=== PATIENT | male | born 1965 | race American Indian/Alaskan Native ===

== ENCOUNTER 2020-05-31 10:12 | Inpatient (IN) | payer OTHER ==
[~2020-05-31] VITALS: Ht 175.3 cm; Wt 151.9 kg
--- OUTSIDE RECORDS SUMMARY | ~2020-05-31 | XMS | Encounter Summary ---
Demographics + + + | Address | [address] | | | [place] [address] | + + + | Home Phone | | + + + | Preferred Language | Unknown | + + + | Marital Status | | + + + | Presybeterian Affiliation | CHR | + + + | Race | White | + + + | Ethnic Group | Not or | + + + Author + + + | Author | [facility] | + + + | Organization | [facility] | + + + | Address | Unknown | + + + | Phone | Unavailable | + + + Support + + +---------+ + | Name | Relationship | Address | Phone | + + +---------+ + | Jacquie Garcia | ECON | Unknown | | + + +---------+ + Care Team Providers + +------+ + | Care Herbarium Curator Name | Role | Phone | + +------+ + | Karime Benavides MD | PCP | | + +------+ + Encounter Details +--------+ + + + + | Date | Type | Department | Care Team | Description | +--------+ + + + + | 02/25/ | Outside | [facility] | Karime Benavides, | | | 2018 | Referral | [facility] [address] | MD Rossi | | | | Order | [facility] | [facility] | | | | | [facility], | [address] | | | | | [address] | [place], [place] | | | | | [facility] [place] | [address] | | | | | [address] | | | | | | [phone] | | | +--------+ + + + + Social History + +-------+ +--------+------+ | Tobacco Use | Types | Packs/Day | Years | Date | | | | | Used | | + +-------+ +--------+------+ | Never Assessed | | | | | + +-------+ +--------+------+ + + + | Sex Assigned at | Date Recorded | | | | + + + | Not on file | | + + + + + + + | Job Start Date | Occupation | Industry | + + + + | Not on file | Not on file | Not on file | + + + + + + + + | Travel History | Travel Start | Travel End | + + + + + + | No recent travel history available. | + + documented as of this encounter Plan of Treatment Not on filedocumented as of this encounter Results EUS UPPER (03/26/2018 1:41 PM PDT) + + | Specimen | + + | | + + + +--- + | Narrative | Pe rformed At | + +--- + | MRN: | [facility] | | [id number] Date: 03/26/2018Patient Name: Srinivasa Fairchild #: | EN DOSCOPY | | [id number] of : 1965CSN: [id number] Type: | | | AmbulatoryRoom: GI 1Procedure: Upper EUSIndications: | | | Lymphadenopathy on CT scan, Lymphadenopathy on MRIProviders: | | | KAREN ESPARZA MD (Doctor), JONNY WINN RN | | | (Nurse), CHONG FLOOD, Employment Law Specialist | | | (Employment Law Specialist)Referring MD: KARIME BENAVIDESRequesting | | | Provider: Medicines: Monitored Anesthesia | | | CareComplications: No immediate complications.Procedure: | | | Pre-Anesthesia Assessment: - | | | Pre-procedure physical examination revealed no | | | contraindications to sedation. | | | - Airway Examination: Mallampati Class II (the uvula but | | | not tonsillar pillars visualized). | | | - ASA Grade Assessment: III - A patient with severe | | | systemic disease. | | | - After reviewing the risks and benefits, the patient | | | was deemed in satisfactory condition to undergo | | | the procedure. | | | - The anesthesia plan was to use monitored anesthesia | | | care (MAC). - | | | Immediately prior to administration of medications, | | | the patient was re-assessed for adequacy to receive | | | sedatives. | | | Prior to the procedure, a History and Physical with | | | airway assessment was performed (see patient record), | | | and patient medications and allergies were | | | reviewed. The risks and benefits of | | | the procedure and the sedation options | | | and risks were discussed. All questions were | | | answered and informed consent was obtained. After | | | reviewing the risks and benefits, the patient was | | | deemed in satisfactory condition to | | | undergo the procedure. Immediately | | | prior to administration of medications, the | | | patient was re-assessed for adequacy to receive | | | sedatives. The heart rate, respiratory rate, oxygen | | | saturations, blood pressure, adequacy of | | | pulmonary ventilation, and response to | | | care were monitored throughout the | | | procedure. The physical status of the | | | patient was re-assessed after the procedure. | | | The Olympus [id number] Endoscope #[id number] was introduced | | | through the mouth, and advanced to the second | | | part of duodenum. The Olympus [id number] | | | AL5 Linear Echoendoscope #[id number] was | | | introduced through the mouth, and advanced | | | to the second part of duodenum. The upper EUS was | | | accomplished without difficulty. The patient tolerated | | | the procedure fairly well.Estimated | | | Blood Loss: Estimated blood loss was minimal.Findings: | | | Endoscopic Finding : LA Grade B (one or more mucosal breaks | | | greater than 5 mm, not extending between the tops of two | | | mucosal folds) esophagitis was found in the distal esophagus. | | | The entire examined stomach was endoscopically normal. The | | | examined duodenum was endoscopically normal. Endosonographic | | | Finding : There was no sign of significant endosonographic | | | abnormality in the ampulla. There was no sign of | | | significant endosonographic abnormality in the common bile | | | duct. The maximum diameter of the duct was 5 mm in the head of | | | the pancreas. There was no sign of significant endosonographic | | | abnormality in the entire pancreas. The pancreatic duct | | | measured up to 2.4 mm in diameter in the body of the pancreas. | | | Two enlarged lymph nodes were visualized in the gastrohepatic | | | ligament (level 18). The largest measured 16 mm by 9 mm in | | | maximal cross-sectional diameter. The nodes were oval, | | | hypoechoic and had well defined margins. One enlarged | | | lymph node was visualized in the avelino hepatis region. It | | | measured 24 mm by 15 mm in maximal cross-sectional diameter. The node | | | was oval, isoechoic and heterogenous and had well defined | | | margins. Fine needle aspiration for cytology was performed. | | | Color Doppler imaging was utilized prior to needle puncture to | | | confirm a lack of significant vascular structures within the | | | needle path. Five passes were made with the 25 gauge needle | | | using a transduodenal approach. A stylet was used. A customer care voice consultant | | | was present and performed a preliminary cytologic examination. | | | The cellularity of the specimen was adequate. Final cytology | | | results are pending. There was diffuse abnormal echotexture in | | | the undersurface of the liver. This was characterized by a | | | hyperechoic appearance.Impression: - LA Grade B reflux | | | esophagitis. - Two enlarged lymph nodes | | | were visualized in the gastrohepatic | | | ligament (level 18). - One enlarged | | | lymph node was visualized in the avelino | | | hepatis region. Fine needle aspiration performed. | | | - Changes of fatty liver.Recommendation: - Discharge | | | patient to home (ambulatory). - Await | | | cytology results. - Return to referring | | | physician as previously scheduled. - The | | | findings and recommendations were discussed with | | | the patient and their family.Attending Participation: | | | I personally performed the entire procedure.BERENICE Chacko | | | MD EZEKIEL03/26/2018 4:34:19 PMThis report has been signed | | | electronically.Number of Addenda: 0Note Initiated On: 03/26/2018 1:41 | | | [facility] Letter to: KARIME BENAVIDES | | | - The findings and recommendations were discussed with | | | the patient and their family. | | |Attending Participation: | | | I personally performed the entire procedure. | | |Karen Esparza MD | | |KAREN ESPARZA MD | | |03/26/2018 4:34:19 PM | | |This report has been signed electronically. | | |Number of Addenda: 0 | | |Note Initiated On: 03/26/2018 1:41 PM | | | Letter to: | | | KARIME BENAVIDES | | + +--- + + +---------+ + + | Performing | Address | City/State/Zipcode | Phone Number | | Organization | | | | + +---------+ + + | [facility] | | | | + +---------+ + + documented in this encounter Visit Diagnoses + + | Diagnosis | + + | Lymphadenitis - Primary Lymphadenitis, unspecified, except mesenteric | + + documented in this encounter"
--- OUTSIDE RECORDS SUMMARY | ~2020-05-31 | XMS | Encounter Summary ---
Demographics + + + | Address | [address] | | | [place] [address] | + + + | Home Phone | | + + + | Preferred Language | Unknown | + + + | Marital Status | | + + + | Presybeterian Affiliation | CHR | + + + | Race | White | + + + | Ethnic Group | Not or | + + + Author + + + | Author | [facility] | + + + | Organization | [facility] | + + + | Address | Unknown | + + + | Phone | Unavailable | + + + Support + + +---------+ + | Name | Relationship | Address | Phone | + + +---------+ + | Jacquie Garcia | ECON | Unknown | | + + +---------+ + Care Team Providers + +------+ + | Care Analysis Manager Name | Role | Phone | + +------+ + | Campos Benavides MD | PCP | | + +------+ + Reason for Visit + + + | Reason | Comments | + + + | Medical Records | | | Review | | + + + Encounter Details +--------+ + + + + | Date | Type | Department | Care Team | Description | +--------+ + + + + | 02/21/ | Documentati | Endoscopic | Lab, Gi Procedure | Medical Records | | 2018 | on | Procedural Unit at | | Review | | | | [address] | | | | | | [address] | | | | | | [place], | | | | | | [address] floor [place], | | | | | | [place] [address] | | | | | | [phone] | | | +--------+ + + + [...] Not on filedocumented as of this encounter Visit Diagnoses Not on filedocumented in this encounter"
--- OUTSIDE RECORDS SUMMARY | ~2020-05-31 | XMS | Encounter Summary ---
Demographics + + + | Address | [address] | | | [place] [address] | + + + | Home Phone | | + + + | Preferred Language | Unknown | + + + | Marital Status | | + + + | Muslim Affiliation | CHR | + + + | Race | White | + + + | Ethnic Group | Not or | + + + Author + + + | Author | [facility] | + + + | Organization | [facility] | + + + | Address | Unknown | + + + | Phone | Unavailable | + + + Support + + +---------+ + | Name | Relationship | Address | Phone | + + +---------+ + | Jacquie Garcia | ECON | Unknown | | + + +---------+ + Care Team Providers + +------+ + | Care Wine Sales Representative Name | Role | Phone | + +------+ + | Campos Benavides MD | PCP | | + +------+ + Reason for Visit + + + | Reason | Comments | + + + | Pre-op evaluation | | + + + Encounter Details +--------+ + + + + | Date | Type | Department | Care Team | Description | +--------+ + + + + | 03/25/ | Telephone-S | Preoperative | | Pre-op evaluation | | 2018 | [facility] | Medicine Clinic at | | | | | | [facility] [address] | | | | | | [address] | | | | | | [address] | | | | | | Mailcode: [id number] | | | | | | [address] | | | | | | [address] [place], [place] | | | | | | [address] | | | | | | [phone] | | | +--------+ + + + + Anesthesia Record + + + + + | Procedure Name | Responsible | Anesthesia Start | Anesthesia Stop Time | | | Anesthesiologist | Time | | + + + + + | EUS UPPER | Geo Acosta MD | 03/26/18 1353 | 03/26/18 1520 | + + + + + +----+---+ + + | Da | T | Event | Comment | | te | i | | | | | m | | | | | e | | | +----+---+ + + | 05 | 1 | Eq Check | Anesthesia machine checked Equipment verified | | /2 | 3 | | | | 2/ | 3 | | | | 20 | 5 | | | | 18 | | | | +----+---+ + + | | 1 | Pt. Check | Prior to anesthesia start, pt. Identified, examined, chart | | | 3 | | reviewed, PARQ held, anesthetic plan made or approved by | | | 4 | | attending anesthesiologist. NPO status confirmed as appropriate | | | 0 | | for procedure Preoperative evaluation: unchanged | +----+---+ + + | | 1 | An Start | | | | 3 | | | | | 5 | | | | | 3 | | | +----+---+ + + | | 1 | An Start | | | | 3 | Data | | | | 5 | | | | | 9 | | | +----+---+ + + | | 1 | Vitals | Monitors applied Vital signs checked Patient ready for anesthesia | | | 4 | Checked | | | | 0 | | | | | 0 | | | +----+---+ + + | | 1 | O2 by NC | | | | 4 | | | | | 0 | | | | | 3 | | | +----+---+ + + | | 1 | Ready | | | | 4 | | | | | 0 | | | | | 4 | | | +----+---+ + + | | 1 | Timeout | | | | 4 | | | | | 1 | | | | | 2 | | | +----+---+ + + | | 1 | Abx held | Contraindicated, or not indicated for this procedure, or already | | | 4 | Medical or | receiving antibiotics | | | 1 | Surgical | | | | 3 | Reason | | +----+---+ + + | | 1 | Incision | | | | 4 | | | | | 1 | | | | | 6 | | | +----+---+ + + | | 1 | Note | B/P cuff switched to left leg | | | 4 | | | | | 5 | | | | | 2 | | | +----+---+ + + | | 1 | Surgery end | | | | 5 | | | | | 0 | | | | | 0 | | | +----+---+ + + | | 1 | an stop | | | | 5 | data | | | | 0 | | | | | 6 | | | +----+---+ + + | | 1 | PACU Rpt | | | | 5 | Given | | | | 2 | | | | | 0 | | | +----+---+ + + | | 1 | Anesthesia | | | | 5 | End | | | | 2 | | | | | 0 | | | +----+---+ + + +------+ | Meds | +------+ + + + No medications | on file. | + + + + + | No agents on file. | + + + + | No blood administrations on file. | + + +--------+ + + + | Type | Details | Placement | Removal | +--------+ + + + | Periph | 03/26/18; 1215; Shagufta Jones RN; | 03/26/18 1215 by | 03/26/18 1604 by | | eral | Right; Antecubital; 20 g; None; | Shagufta Mcclelland RN | Lidia Sunitsch RN | | IV | No; Positive; 03/26/18; 1604; | | | | | Discharge | | | +--------+ + + + documented in this encounter Social History + +-------+ +--------+------+ | Tobacco [...]
--- OUTSIDE RECORDS SUMMARY | ~2020-05-31 | XMS | Encounter Summary ---
Demographics + + + | Address | [address] | | | [place] [address] | + + + | Home Phone | | + + + | Preferred Language | Unknown | + + + | Marital Status | | + + + | Episcopal Affiliation | CHR | + + + | Race | White | + + + | Ethnic Group | Not or | + + + Author + + + | Author | [facility] | + + + | Organization | [facility] | + + + | Address | Unknown | + + + | Phone | Unavailable | + + + Support + + +---------+ + | Name | Relationship | Address | Phone | + + +---------+ + | Jacquie Garcia | ECON | Unknown | | + + +---------+ + Care Team Providers + +------+ + | Care Accounts Receivable Administrator Name | Role | Phone | + [...] | | | | | [address] floor [place], | | | | | | [place] [address] | | | | | | [phone] | | | +--------+ + + + [...]
--- OUTSIDE RECORDS SUMMARY | ~2020-05-31 | XMS | Encounter Summary ---
Demographics + + + | Address | [address] | | | [place] [address] | + + + | Home Phone | | + + + | Preferred Language | Unknown | + + + | Marital Status | | + + + | Uatsdin Affiliation | CHR | + + + | Race | White | + + + | Ethnic Group | Not or | + + + Author + + + | Author | [facility] | + + + | Organization | [facility] | + + + | Address | Unknown | + + + | Phone | Unavailable | + + + Support + + +---------+ + | Name | Relationship | Address | Phone | + + +---------+ + | Jacquie Garcia | ECON | Unknown | | + + +---------+ + Care Team Providers + +------+ + | Care Senior Research Associate Name | Role | Phone | + [...] [address] | | | | | | [place], [place] | | | | | | [address] | | | +--------+ + + + [...]
--- OUTSIDE RECORDS SUMMARY | ~2020-05-31 | XMS | Encounter Summary ---
Demographics + + + | Address | [address] | | | [place] [address] | + + + | Home Phone [...] Team Providers + +------+ + | Care Poultry Cutter Name | Role | Phone | + +------+ + | Campos Benavides MD | PCP | | + +------+ + Reason for Visit + + + | Reason | Comments | + + + | Lab findings, | | | teaching, guidance, | | | and counseling | | + + + Encounter Details +--------+ + + + + | Date | Type | Department | Care Team | Description | +--------+ + + + + | 05/31/ | Telephone | Digestive Health | CristianIain toro, | Lab findings, | | 2018 | | Center at [facility] [address] | [address] [facility] | teaching, guidance, | | | | [facility] | [address] | and counseling | | | | for Health and | [place], [place] | | | | | [facility] [address] | [address] | | | | | [place], [place] | [phone] | | | | | [address] | | | | | | [phone] | | | +--------+ + + + [...]
--- OUTSIDE RECORDS SUMMARY | ~2020-05-31 | XMS | Encounter Summary ---
Demographics + + + | Address | [address] | | | [place] [address] | + + + | Home Phone | | + + + | Preferred Language | Unknown | + + + | Marital Status | | + + + | Judaism Affiliation | CHR | + + + | Race | White | + + + | Ethnic Group | Not or | + + + Author + + + | Author | [facility] | + + + | Organization | [facility] | + + + | Address | Unknown | + + + | Phone | Unavailable | + + + Support + + +---------+ + | Name | Relationship | Address | Phone | + + +---------+ + | Jacquie Garcia | ECON | Unknown | | + + +---------+ + Care Team Providers + +------+ + | Care Cuff Slitter Name | Role | Phone | + +------+ + | Campos Benavides MD | PCP | | + +------+ + Reason for Visit + + + | Reason | Comments | + + + | Telephone follow-up | 03/26/18 | + + + | Test Results | | + + + Encounter Details +--------+ + + + + | Date | Type | Department | Care Team | Description | +--------+ + + + + | 03/27/ | Telephone | Endoscopic | Iain Esparza, | Telephone follow-up | | 2018 | | Procedural Unit at | [address] | (03/26/18); Test | | | | [facility] [address] | [facility] | Results | | | | [address] | [place], [place] | | | | | [facility] [address], | [address] | | | | | [address] floor [place], | [phone] | | | | | [place] [address] | | | | | | [phone] | | | +--------+ + + + [...]
--- OUTSIDE RECORDS SUMMARY | ~2020-05-31 | XMS | Encounter Summary ---
Demographics + + + | Address | [address] | | | [place] [address] | + + + | Home Phone | | + + + | Preferred Language | Unknown | + + + | Marital Status | | + + + | Scientology Affiliation | CHR | + + + | Race | White | + + + | Ethnic Group | Not or | + + + Author + + + | Author | [facility] | + + + | Organization | [facility] | + + + | Address | Unknown | + + + | Phone | Unavailable | + + + Support + + +---------+ + | Name | Relationship | Address | Phone | + + +---------+ + | Jacquie Garcia | ECON | Unknown | | + + +---------+ + Care Team Providers + +------+ + | Care Gum Scoring Machine Operator Name | Role | Phone | + +------+ + | Campos Benavides MD | PCP | | + +------+ + Encounter Details +--------+ + + + + | Date | Type | Department | Care Team | Description | +--------+ + + + + | 01/23/ | Document-Sc | Health Information | Other, Faculty | | | 2018 | anned | Services [address] | [phone] | | | | | [address] | | | | | | Mailcode: [id number] | | | | | | [facility] | | | | | | [place], [place] | | | | | | [address] | | | | | | [phone] | | | +--------+ + + + [...] Not on filedocumented as of this encounter Procedures + +--------+ + + + | Procedure Name | Priori | Date/Time | Associated Diagnosis | Comments | | | ty | | | | + +--------+ + + + | RADIOLOGY | | 01/23/2018 | | Results for this | | | | 12:00 AM | | procedure are in the | | | | PDT | | results section. | + +--------+ + + + documented in this encounter Results RADIOLOGY (01/23/2018 12:00 AM PDT) + + + | Narrative | Performed At | + + + | | | + + + documented in this encounter Visit Diagnoses Not on filedocumented in this encounter"
--- OUTSIDE RECORDS SUMMARY | ~2020-05-31 | XMS | Encounter Summary ---
Demographics + + + | Address | [address] | | | [place] [address] | + + + | Home Phone | | + + + | Preferred Language | Unknown | + + + | Marital Status | | + + + | Baptist Affiliation | CHR | + + + | Race | White | + + + | Ethnic Group | Not or | + + + Author + + + | Author | [facility] | + + + | Organization | [facility] | + + + | Address | Unknown | + + + | Phone | Unavailable | + + + Support + + +---------+ + | Name | Relationship | Address | Phone | + + +---------+ + | Jacquie Garcia | ECON | Unknown | | + + +---------+ + Care Team Providers + +------+ + | Care Compliance Vice President Name | Role | Phone | + +------+ + | Campos Benavides MD | PCP | | + +------+ + Encounter Details +--------+ + + + + | Date | Type | Department | Care Team | Description | +--------+ + + + + | 01/23/ | Document-Sc | Health Information | Other, Faculty | | | 2018 | anned | Services [address] | [phone] | | | | | [address] | | | | | | Mailcode: [id number] | | | | | | [facility] | | | | | | [place], [place] | | | | | | [address] | | | | | | [phone] | | | +--------+ + + + [...]
--- OUTSIDE RECORDS SUMMARY | ~2020-05-31 | XMS | Encounter Summary ---
Demographics + + + | Address | [address] | | | [place] [address] | + + + | Home Phone | | + + + | Preferred Language | Unknown | + + + | Marital Status | | + + + | Tenriism Affiliation | CHR | + + + | Race | White | + + + | Ethnic Group | Not or | + + + Author + + + | Author | [facility] | + + + | Organization | [facility] | + + + | Address | Unknown | + + + | Phone | Unavailable | + + + Support + + +---------+ + | Name | Relationship | Address | Phone | + + +---------+ + | Jacquie Garcia | ECON | Unknown | | + + +---------+ + Care Team Providers + +------+ + | Care Global Product Manager Name | Role | Phone | [...] [address] | | | | | [facility] | [facility] | | | | | [address] | [place], [place] | | | | | ([facility]) | [address] | | | | | [place], [place] | [phone] | | | | | [address] | | | | | | [phone] | | | +--------+ + + + [...] Discharge Instructions Instructions Jonny Winn RN - [facility]2018[facility] Care Instructions after EGD (Upper Endosco py) [...] hours or on weekends and holiday Hospital Pump Attendant toll free [phone]. [phone] and have the GI doctor national secretary paged. The provider who performed your procedure [...] +---------+--------+ + documented as of this encounter Plan [...] endoscopic | | DEPARTMENT | signed by Sung | | Diagnosis | ultrasound-guided fine | | OF | E MD Lizandro on | | | needle aspiration:- | [...] or | | | | | | Fnau-Olgzbbjoc-cgtq | | | | | | cells are identified. | | | | | | Because fine needle | | | | | | aspiration specimens are | | | | | | not always | | | | | | technical account representative, if the | | | | [...] | | | | | | FellowSung-Mary MD Lizandro | | | | | | - [...] | + + + + + | [facility] | [address] | [place] [address] | | | PATHOLOGY | [address] | | | + + + + + EUS UPPER (03/26/2018 1:41 PM PDT) + + | Specimen | + + | | + + + +--- + | Narrative | Pe rformed At | + +--- + | MRN: Arcadio OVALLES | | [id number] Date: 03/26/2018Patient Name: Srinivasa SamayoaRoger #: | EN DOSCOPY | | [id number] of : 1965CSN: [id number] Type: | | | AmbulatoryRoom: GI 1Procedure: Upper EUSIndications: | | | Lymphadenopathy on CT scan, Lymphadenopathy on MRIProviders: | | | IAIN ESPARZA MD (Doctor), JONNY WINN, RN | | | (Nurse), CHONG FLOOD, Biomedical Repair Technician | | | (Biomedical Repair Technician)Referring MD: CAMPOS BENAVIDESRequesting | | | Provider: [...] | | | The Olympus GIF-[id number] Endoscope #[id number] was introduced | | | through the mouth, and advanced to the second | | | part of duodenum. The Olympus [id number] | | | AL5 Linear Echoendoscope #[id number] was | | | introduced through the [...] transduodenal approach. A stylet was used. A light rail operator | | | was present and performed [...] Initiated On: 03/26/2018 1:41 | | | [facility] Letter to: CAMPOS BENAVIDES | | | [...] + + + | [facility] | [address] | [place], [place] | | | [place] | [facility] | [address] | | | TESTS | | | [...]
--- OUTSIDE RECORDS SUMMARY | ~2020-05-31 | XMS | Encounter Summary ---
Demographics + + + | Address | [address] | | | [place] [address] | + + + | Home Phone | | + + + | Preferred Language | Unknown | + + + | Marital Status | | + + + | Moravian Affiliation | CHR | + + + | Race | White | + + + | Ethnic Group | Not or | + + + Author + + + | Author | [facility] | + + + | Organization | [facility] | + + + | Address | Unknown | + + + | Phone | Unavailable | + + + Support + + +---------+ + | Name | Relationship | Address | Phone | + + +---------+ + | Jacquie Garcia | ECON | Unknown | | + + +---------+ + Care Team Providers + +------+ + | Care Scientific Writer Name | Role | Phone | + [...] [address] | | | | | | [place], [place] | | | | | | [address] | | | +--------+ + + + [...]
--- OUTSIDE RECORDS SUMMARY | ~2020-05-31 | XMS | Clinical Summary ---
Demographics + + + | Address | [address] | | | [place] [address] | + + + | Home Phone | | + + + | Preferred Language | Unknown | + + + | Marital Status | | + + + | Alevism Affiliation | CHR | + + + | Race | White | + + + | Ethnic Group | Not or | + + + Author + + + | Author | [facility] | + + + | Organization | [facility] | + + + | Address | Unknown | + + + | Phone | Unavailable | + + + Support + + +---------+ + | Name | Relationship | Address | Phone | + + +---------+ + | Jacquie Garcia | ECON | Unknown | | + + +---------+ + Care Team Providers + +------+ + | Care Cane Feeder Name | Role | Phone | + +------+ + | Campos Benavides MD | PCP | | + +------+ + Source Comments JOSR is fully live on both [facility] and [facility] Allergies No Known Allergies Medications + + [...] + +---------+------+------+-------+ Active Problems Not on file Social History [...] recent travel history available. | + + Last Filed Vital Signs + [...] Health Maintenance | Due Date | Last Done | Comments | + + + + + | Influenza (Flu) | | 11/16/2017, 08/14/2016, | | | vaccination (#1) | 9 | 08/10/2015, Additional history | | | | | exists | | + + + + + | Pneumococcal | Aged Out | | No longer eligible | | vaccination | | | based on patient's | | | | | age to complete this | | | | | topic | + + + + + [...] | | | + +--------+ +--------+-------+---------+--------+ | [facility] | | xxxxxxxxx | | | | Agency | | [...] Person | Self | [birth year] | | [address] | | | al/Aniceto | | 1965 | [phone] | [place] | | | ken | | | 9 ([place]) | [address] | + +--------+ +--------+ + +
--- OUTSIDE RECORDS SUMMARY | ~2020-05-31 | XMS | Encounter Summary ---
Demographics + + + | Address | [address] | | | [place] [address] | + + + | Home Phone | | + + + | Preferred Language | Unknown | + + + | Marital Status | | + + + | Episcopalian Affiliation | CHR | + + + | Race | White | + + + | Ethnic Group | Not or | + + + Author + + + | Author | [facility] | + + + | Organization | [facility] | + + + | Address | Unknown | + + + | Phone | Unavailable | + + + Support + + +---------+ + | Name | Relationship | Address | Phone | + + +---------+ + | Jacquie Garcia | ECON | Unknown | | + + +---------+ + Care Team Providers + +------+ + | Care Flake Drier Name | Role | Phone | + [...] [address] | | | | | [facility] | [facility] | | | | | [address] | [place], [place] | | | | | ([facility]) | [address] | | | | | [place], [place] | [phone] | | | | | [address] | | | | | | [phone] | | | +--------+ + + + [...] Discharge Instructions Instructions Jonny Winn RN - 03/26/2018[facility] Care Instructions after EGD (Upper Endosco py) [...] hours or on weekends and holiday Hospital Fuels Engineer toll free [phone]. [phone] and have the GI doctor flotation operator paged. The provider who performed your procedure [...] or | | | | | | Rfkm-Zmphvfaoe-msrj | | | | | | cells are identified. | | | | | | Because fine needle | | | | | | aspiration specimens are | | | | | | not always | | | | | | client account representative, if the | | | [...] | + + + + + | [facility] | [address] | [place] [address] | | | PATHOLOGY | [address] | | | + + + + + EUS UPPER (03/26/2018 1:41 PM PDT) + + | Specimen | + + | | + + + +--- + | Narrative | Pe rformed At | + +--- + | MRN: Arcadio OVALLES | | [id number] Date: 03/26/2018Patient Name: Srinivasa SamayoaRoger #: | EN DOSCOPY | | [id number] of : 1965CSN: [id number] Type: | | | AmbulatoryRoom: GI 1Procedure: Upper EUSIndications: | | | Lymphadenopathy on CT scan, Lymphadenopathy on MRIProviders: | | | IAIN ESPARZA MD (Doctor), JONNY WINN, RN | | | (Nurse), CHONG FLOOD, Glue Wheel Operator | | | (Glue Wheel Operator)Referring MD: CAMPOS BENAVIDESRequesting | | | Provider: [...] | | | The Olympus GIF-H190 Endoscope #[id number] was introduced | | | through the mouth, and advanced to the second | | | part of duodenum. The Olympus [id number] | | | AL5 Linear Echoendoscope #[id number] was | | | introduced through the [...] transduodenal approach. A stylet was used. A director of early childhood | | | was present and performed [...] Initiated On: 03/26/2018 1:41 | | | [facility] Letter to: CAMPOS BENAVIDES | | | [...] GO[facility] | [address] | [place], [place] | | | [place] | [facility] | [address] | | | TESTS | | | [...]
--- OUTSIDE RECORDS SUMMARY | ~2020-05-31 | XMS | Clinical Summary ---
Demographics + + + | Address | [address] [place] [address] [address] | | | [place] [address] | + + + | Home Phone | | + + + | Preferred Language | Unknown | + + + | Marital Status | | + + + | Lutheran Affiliation | Unknown | + + + | Race | Unknown | + + + | Ethnic Group | Unknown | + + + Author + + + | Author | [facility] | | | and Janesana | + + + | Organization | [facility] | | | and Janesana [...] Team Providers + +------+ + | Care County Administrator Name | Role | Phone | [...] | | | + +--------+ +--------+-------+---------+--------+ | [facility] | IHS | [phone] | | | | Indemn | | [...] Person | Self | [birth year] | | [address] | | | al/Fam | | 1965 | [phone] | [place] | | | ken | | | 9 ([place]) | [address] | + +--------+ +--------+ + +"
--- OUTSIDE RECORDS SUMMARY | ~2020-05-31 | XMS | Encounter Summary ---
Demographics + + + | Address | [address] | | | [place] [address] | + + + | Home Phone | | + + + | Preferred Language | Unknown | + + + | Marital Status | | + + + | Jew Affiliation | Unknown | + + + | Race | Unknown | + + + | Ethnic Group | Unknown | + + + Author + + + | Author | [facility] | | | and Janesana | + + + | Organization | [facility] | | | and [...] Team Providers + +------+ + | Care Account Support Manager Name | Role | Phone | + +------+ + PCP | Unavailable | + +------+ + Encounter Details +--------+ + + + + | Date | Type | Department | Care Team | Description | +--------+ + + + + | 06/30/ | Hospital | [facility] | [place], | | | 2009 | Encounter | MED CTR EM[facility]Y | [address] | | | | | CENTER [address] | [place] | | | | | [place] | [id number] | | | | | [address] | | | | | | [phone] | | | +--------+ + + + [...]
--- OUTSIDE RECORDS SUMMARY | ~2020-05-31 | XMS | Encounter Summary ---
Demographics + + + | Address | [address] | | | [place] [address] | + + + | Home Phone [...] Team Providers + +------+ + | Care Marker Machine Name | Role | Phone | + +------+ + | Karime Benavides MD | PCP | | + +------+ + Encounter Details +--------+ + + + + | Date | Type | Department | Care Team | Description | +--------+ + + + + | 02/25/ | Outside | [facility] | Karime Benavides, | | | 2018 | Referral | [facility] | MD Rossi | | | | Order | [place] [facility] | [facility] | | | | | [facility] and Healing, | [address] | | | | | [address] | [place], [place] | | | | | [facility] [place] | [address] | | | | | [address] | | | | | | [phone] | | | +--------+ + + + [...] + | MRN: | [facility] | | [id number] Date: 03/26/2018Patient Name: Srinivasa Fairchild #: | EN DOSCOPY | | [id number] of : 1965CSN: [id number] Type: | | | AmbulatoryRoom: GI 1Procedure: Upper EUSIndications: | | | Lymphadenopathy on CT scan, Lymphadenopathy on MRIProviders: | | | KAREN ESPARZA MD (Doctor), JONNY WINN RN | | | (Nurse), CHONG FLOOD, Junior Qa Analyst | | | (Junior Qa Analyst)Referring MD: KARIME BENAVIDESRequesting | | | Provider: [...] | | | The Olympus GIF-H190 Endoscope #[id number] was introduced | | | through the mouth, and advanced to the second | | | part of duodenum. The Olympus GF-[id number] | | | AL5 Linear Echoendoscope #[id number] was | | | introduced through the [...] transduodenal approach. A stylet was used. A manufacturing engineer chief | | | was present and performed [...] Initiated On: 03/26/2018 1:41 | | | [facility] Letter to: KARIME BENAVIDES | | [...]
--- OUTSIDE RECORDS SUMMARY | ~2020-05-31 | XMS | Clinical Summary ---
Demographics + + + | Address | [address] | | | [place] [address] | + + + | Home Phone | | + + + | Preferred Language | Unknown | + + + | Marital Status | | + + + | Worship Affiliation | CHR | + + + | Race | White | + + + | Ethnic Group | Not or | + + + Author + + + | Author | [facility] | + + + | Organization | [facility] | + + + | Address | Unknown | + + + | Phone | Unavailable | + + + Support + + +---------+ + | Name | Relationship | Address | Phone | + + +---------+ + | Jacquie Garcia | ECON | Unknown | | + + +---------+ + Care Team Providers + +------+ + | Care Setter Juice Packaging Machines Name | Role | Phone | + +------+ + | Campos Benavides MD | PCP | | + +------+ + Source Comments JOSR is fully live on both [facility] Ambulatory and [facility] InPatient.[facility] Allergies No Known Allergies Medications + [...] | | | + +--------+ +--------+-------+---------+--------+ | [facility] | | [phone] | | | [...] Person | Self | [birth year] | | [address] | | | al/Aniceto | | 1965 | [phone] | [place] | | | ken | | | 9 ([place]) | [address] | + +--------+ +--------+ + +
--- OUTSIDE RECORDS SUMMARY | ~2020-05-31 | XMS | Clinical Summary ---
Demographics + + + | Address | [address] [place] [address] [address] | | | [place] [address] | + + + | Home Phone | | + + + | Preferred Language | Unknown | + + + | Marital Status | | + + + | Gnosticist Affiliation | Unknown | + + + | Race | Unknown | + + + | Ethnic Group | Unknown | + + + Author + + + | Author | [facility] | | | and Janesana | + + + | Organization | [facility] | | | and Janesana [...] Team Providers + +------+ + | Care Electric Blanket Wirer Name | Role | Phone | + [...] | | | + +--------+ +--------+-------+---------+--------+ | [facility] | IHS | [phone] | | | | Indemn | | [...] Person | Self | [birth year] | | [address] | | | al/Fam | | 1965 | [phone] | [place] | | | ken | | | 9 ([place]) | [address] | + +--------+ +--------+ + +"
--- OUTSIDE RECORDS SUMMARY | ~2020-05-31 | XMS | Encounter Summary ---
Demographics + + + | Address | [address] | | | [place] [address] | + + + | Home Phone | | + + + | Preferred Language | Unknown | + + + | Marital Status | | + + + | Amish Affiliation | CHR | + + + | Race | White | + + + | Ethnic Group | Not or | + + + Author + + + | Author | [facility] | + + + | Organization | [facility] | + + + | Address | Unknown | + + + | Phone | Unavailable | + + + Support + + +---------+ + | Name | Relationship | Address | Phone | + + +---------+ + | Jacquie Garcia | ECON | Unknown | | + + +---------+ + Care Team Providers + +------+ + | Care Suction Dredge Dumping Supervisor Name | Role | Phone | + +------+ + | Campos Benavides MD | PCP | | + +------+ + Encounter Details +--------+ + + + + | Date | Type | Department | Care Team | Description | +--------+ + + + + | 01/23/ | Document-Sc | Health Information | Other, Faculty | | | 2018 | anned | Services [address] | [phone] | | | | | [address] | | | | | | Mailcode: OP17A | | | | | | [facility] | | | | | | [place], [place] | | | | | | [address] | | | | | | [phone] | | | +--------+ + + + [...]
--- OUTSIDE RECORDS SUMMARY | ~2020-05-31 | XMS | Clinical Summary ---
Demographics + + + | Address | [address] | | | [place] [address] | + + + | Home Phone | | + + + | Preferred Language | Unknown | + + + | Marital Status | | + + + | Jew Affiliation | CHR | + + + | Race | White | + + + | Ethnic Group | Not or | + + + Author + + + | Author | [facility] | + + + | Organization | [facility] | + [...] Team Providers + +------+ + | Care Diesel Powerplant Mechanic Name | Role | Phone | + +------+ + | Campos Benavides MD | PCP | | + +------+ + Source Comments JOSR is fully live on both [facility] Ambulatory and [facility] InPatient.[facility] Allergies No Known Allergies Medications + [...] | | | + +--------+ +--------+-------+---------+--------+ | [facility] | | [phone] | | | [...] Person | Self | [birth year] | | [address] | | | al/Aniceto | | 1965 | [phone] | [place] | | | ken | | | 9 ([place]) | [address] | + +--------+ +--------+ + +
--- OUTSIDE RECORDS SUMMARY | ~2020-05-31 | XMS | Encounter Summary ---
Demographics + + + | Address | [address] | | | [place] [address] | + + + | Home Phone | | + + + | Preferred Language | Unknown | + + + | Marital Status | | + + + | Islam Affiliation | CHR | + + + [...] Team Providers + +------+ + | Care Weigh Machine Operator Name | Role | Phone | + +------+ + | Campos Benavides MD | PCP | | + +------+ + Encounter Details +--------+ + + + + | Date | Type | Department | Care Team | Description | +--------+ + + + + | 02/19/ | Document-Sc | Health Information | Other, Faculty | | | 2018 | anned | Services [address] | [phone] | | | | | [address] | | | | | | Mailcode: OP17A | | | | | | [facility] | | | | | | [place], [place] | | | | | | [address] | | | | | | [phone] | | | +--------+ + + + [...] + + + | RADIOLOGY | | 02/19/2018 | | Results for this | | | | 12:00 AM | | procedure are in the | | | | PDT | | results section. | + +--------+ + + + documented in this encounter Results RADIOLOGY (02/19/2018 12:00 AM PDT) + + + | Narrative | Performed At | + + + | | | + + + documented in this encounter Visit Diagnoses Not on filedocumented in this encounter"
--- OUTSIDE RECORDS SUMMARY | ~2020-05-31 | XMS | Encounter Summary ---
Demographics + + + | Address | [address] | | | [place] [address] | + + + | Home Phone | | + + + | Preferred Language | Unknown | + + + | Marital Status | | + + + | Jew Affiliation | CHR | + + + | Race | White | + + + | Ethnic Group | Not or | + + + Author + + + | Author | [facility] | + + + | Organization | [facility] | + + + | Address | Unknown | + + + | Phone | Unavailable | + + + Support + + +---------+ + | Name | Relationship | Address | Phone | + + +---------+ + | Jacquie Garcia | ECON | Unknown | | + + +---------+ + Care Team Providers + +------+ + | Care Hot Roll Laminator Name | Role | Phone | + [...] | | | | | | [address] [place], [place] | | | | | | [address] | | | | | | [phone] | | | +--------+ + + + [...]
--- OUTSIDE RECORDS SUMMARY | ~2020-05-31 | XMS | Encounter Summary ---
Demographics + + + | Address | [address] | | | [place] [address] | + + + | Home Phone [...] + + + | Author | [facility] | + + + | Organization | [facility] | + + + | Address | Unknown | + + + | Phone | Unavailable | + + + Support + + +---------+ + | Name | Relationship | Address | Phone | + + +---------+ + | Jacquie Garcia | ECON | Unknown | | + + +---------+ + Care Team Providers + +------+ + | Care Field Representative/Health Education Name | Role | Phone | + [...] [address] | | | | | | [place], [place] | | | | | | [address] | | | +--------+ + + + [...]
--- OUTSIDE RECORDS SUMMARY | ~2020-05-31 | XMS | Encounter Summary ---
Demographics + + + | Address | [address] | | | [place] [address] | + + + | Home Phone | | + + + | Preferred Language | Unknown | + + + | Marital Status | | + + + | Hindu Affiliation | CHR | + + + | Race | White | + + + | Ethnic Group | Not or | + + + Author + + + | Author | [facility] | + + + | Organization | [facility] | + + + | Address | Unknown | + + + | Phone | Unavailable | + + + Support + + +---------+ + | Name | Relationship | Address | Phone | + + +---------+ + | Jacquie Garcia | ECON | Unknown | | + + +---------+ + Care Team Providers + +------+ + | Care Staffing Operations Manager Name | Role | Phone | [...] | | | [address] | [place], [place] | | | | | [address], | [address] | | | | | 4th floor [place], | [phone] | | | | | [place] [address] | | | | | | [phone] | [place], | | | | | | [address] | | | | | | [address] | | | | | | [place], [place] | | | | | | [address] | | | | | | [phone] | | | | | | | [...] PDT | | | | | Until Sun03/26/18 at 1506 | | | | | [...] + + +---+ | New Bag | 05/22/20 | 50 mL/hr | 50 mL/hr | | | | 18 12:15 | | | | | | PM PDT | | | | +---------+ + + +---+ +---+---+ | | | +---+---+ documented in this encounter"
--- OUTSIDE RECORDS SUMMARY | ~2020-05-31 | XMS | Encounter Summary ---
Demographics + + + | Address | [address] | | | [place] [address] | + + + | Home Phone | | + + + | Preferred Language | Unknown | + + + | Marital Status | | + + + | Orthodoxy Affiliation | CHR | + + + [...] Team Providers + +------+ + | Care Glue Plant Operator Name | Role | Phone | [...] | | 2018 | | Center at [facility] [address] | [address] | teaching, guidance, | | | | [facility] | [address] | and counseling | | | | for Health and | [place], [place] | | | | | [facility] [address] | [address] | | | | | [place], [place] | [phone] | | | | | [address] | | | | | | [phone] | | | +--------+ + + + [...]
--- OUTSIDE RECORDS SUMMARY | ~2020-05-31 | XMS | Encounter Summary ---
Demographics + + + | Address | [address] | | | [place] [address] | + + + | Home Phone | | + + + | Preferred Language | Unknown | + + + | Marital Status | | + + + | Yazdanism Affiliation | Unknown | + + + | Race | Unknown | + + + | Ethnic Group | Unknown | + + + Author + + + | Author | [facility] | | | and Janesana | + + + | Organization | [facility] | | | and [...] Team Providers + +------+ + | Care Remote Recruiter Name | Role | Phone | + +------+ + PCP | Unavailable | + +------+ + Encounter Details +--------+ + + + + | Date | Type | Department | Care Team | Description | +--------+ + + + + | 06/30/ | Hospital | [facility] | [place], | | | 2009 | Encounter | MED CTR EMERGENCY | [address] | | | | | CENTER [address] | [place] | | | | | [place] | [address] | | | | | [address] | | | | | | [phone] | | | +--------+ + + + [...]
--- OUTSIDE RECORDS SUMMARY | ~2020-05-31 | XMS | Encounter Summary ---
Demographics + + + | Address | [address] | | | [place] [address] | + + + | Home Phone | | + + + | Preferred Language | Unknown | + + + | Marital Status | | + + + | Confucianism Affiliation | CHR | + + + | Race | White | + + + | Ethnic Group | Not or | + + + Author + + + | Author | [facility] | + + + | Organization | [facility] | + + + | Address | Unknown | + + + | Phone | Unavailable | + + + Support + + +---------+ + | Name | Relationship | Address | Phone | + + +---------+ + | Jacquie Garcia | ECON | Unknown | | + + +---------+ + Care Team Providers + +------+ + | Care Correction Officer Name | Role | Phone | + [...] | (03/26/18); Test | | | | [facility] [address] | [facility] | Results | | | | [address] | [place], [place] | | | | | [facility], | [address] | | | | | 4th floor [place], | [phone] | | | | | [place] [address] | | | | | | [phone] | | | +--------+ + + + [...]
--- OUTSIDE RECORDS SUMMARY | ~2020-05-31 | XMS | Encounter Summary ---
Demographics + + + | Address | [address] | | | [place] [address] | + + + | Home Phone | | + + + | Preferred Language | Unknown | + + + | Marital Status | | + + + | Yarsanism Affiliation | CHR | + + + | Race | White | + + + | Ethnic Group | Not or | + + + Author + + + | Author | [facility] | + + + | Organization | [facility] | + + + | Address | Unknown | + + + | Phone | Unavailable | + + + Support + + +---------+ + | Name | Relationship | Address | Phone | + + +---------+ + | Jacquie Garcia | ECON | Unknown | | + + +---------+ + Care Team Providers + +------+ + | Care Video Specialist Name | Role | Phone | + [...] [address] | | | | | [address] | [address] | | | | | [address] | [place], [place] | | | | | [address], | [address] | | | | | 4th floor [place], | [phone] | | | | | [place] [address] | | | | | | [phone] | Daisy Delvalle, | | | | | | KHAI [address] | | | | | | [address] | | | | | | [place], [place] | | | | | | [address] | | | | | | [phone] | | | | | | | [...]
--- OUTSIDE RECORDS SUMMARY | ~2020-05-31 | XMS | Encounter Summary ---
Demographics + + + | Address | [address] | | | [place] [address] | + + + | Home Phone | | + + + | Preferred Language | Unknown | + + + | Marital Status | | + + + | Mandaen Affiliation | CHR | + + + | Race | White | + + + | Ethnic Group | Not or | + + + Author + + + | Author | [facility] | + + + | Organization | [facility] | + + + | Address | Unknown | + + + | Phone | Unavailable | + + + Support + + +---------+ + | Name | Relationship | Address | Phone | + + +---------+ + | Jacquie Garcia | ECON | Unknown | | + + +---------+ + Care Team Providers + +------+ + | Care National Facilities Manager Name | Role | Phone | + +------+ + | Campos Benavides MD | PCP | | + +------+ + Encounter Details +--------+ + + + + | Date | Type | Department | Care Team | Description | +--------+ + + + + | 02/19/ | Document-Sc | Health Information | Other, Faculty | | | 2018 | anned | Services [address] | [phone] | | | | | [address] | | | | | | Mailcode: OP17A | | | | | | [facility] | | | | | | [place], [place] | | | | | | [address] | | | | | | [phone] | | | +--------+ + + + [...]
--- OUTSIDE RECORDS SUMMARY | ~2020-05-31 | XMS | Encounter Summary ---
Demographics + + + | Address | [address] | | | [place] [address] | + + + | Home Phone | | + + + | Preferred Language | Unknown | + + + | Marital Status | | + + + | Sabianist Affiliation | CHR | + + + [...] Team Providers + +------+ + | Care Weight Yardage Checker Name | Role | Phone | + +------+ + | Karime Benavides MD | PCP | | + +------+ + Encounter Details +--------+ + + + + | Date | Type | Department | Care Team | Description | +--------+ + + + + | 02/25/ | Outside | [facility] | Karime Benavides, | | | 2018 | Referral | [facility] | MD Rossi | | | | Order | [facility] | [facility] | | | | | [facility] and Healing, | [address] | | | | | [address] | [place], [place] | | | | | [facility] [place] | [address] | | | | | [address] | | | | | | [phone] | | | +--------+ + + + [...] + | MRN: | [facility] | | [id number] Date: 03/26/2018Patient Name: Srinivasa Fairchild #: | EN DOSCOPY | | [id number] of : 1965CSN: [id number] Type: | | | AmbulatoryRoom: GI 1Procedure: Upper EUSIndications: | | | Lymphadenopathy on CT scan, Lymphadenopathy on MRIProviders: | | | KAREN ESPARZA MD (Doctor), JONNY WINN RN | | | (Nurse), CHONG FLOOD, Laborer Wood Preserving Plant | | | (Laborer Wood Preserving Plant)Referring MD: KARIME BENAVIDESRequesting | | | Provider: [...] | | | The Olympus [id number] Endoscope #[id number] was introduced | | | through the mouth, and advanced to the second | | | part of duodenum. The Olympus [id number] | | | AL5 Linear Echoendoscope #[id number] was | | | introduced through the [...] transduodenal approach. A stylet was used. A senior principal process engineer | | | was present and [...] 1:41 | | | [facility] Letter to: KARIME BENAVIDES | | [...]
--- OUTSIDE RECORDS SUMMARY | ~2020-05-31 | XMS | Encounter Summary ---
Demographics + + + | Address | [address] | | | [place] [address] | + + + | Home Phone | | + + + | Preferred Language | Unknown | + + + | Marital Status | | + + + | Jehovah'S Witness Affiliation | CHR | + + + [...] Team Providers + +------+ + | Care Winding Machine Operator Name | Role | Phone [...] | | 2018 | | Center at [facility] [address] | [address] [facility] | teaching, guidance, | | | | [facility] | [address] | and counseling | | | | for Health and | [place], [place] | | | | | [facility] [address] | [address] | | | | | [place], [place] | [phone] | | | | | [address] | | | | | | [phone] | | | +--------+ + + + [...]
--- OUTSIDE RECORDS SUMMARY | ~2020-05-31 | XMS | Encounter Summary ---
Demographics + + + | Address | [address] | | | [place] [address] | + + + | Home Phone [...] + + + | Author | [facility] | + + + | Organization | [facility] | + + + | Address | Unknown | + + + | Phone | Unavailable | + + + Support + + +---------+ + | Name | Relationship | Address | Phone | + + +---------+ + | Jacquie Garcia | ECON | Unknown | | + + +---------+ + Care Team Providers + +------+ + | Care Hot Die Press Feeder Name | Role | Phone | [...] | | | | | 4th floor [place], | | | | | | [place] [address] | | | | | | [phone] | | | +--------+ + + + [...]
--- OUTSIDE RECORDS SUMMARY | ~2020-05-31 | XMS | Encounter Summary ---
Demographics + + + | Address | [address] | | | [place] [address] | + + + | Home Phone | | + + + | Preferred Language | Unknown | + + + | Marital Status | | + + + | Buddhism Affiliation | CHR | + + + | Race | White | + + + | Ethnic Group | Not or | + + + Author + + + | Author | [facility] | + + + | Organization | [facility] | + + + | Address | Unknown | + + + | Phone | Unavailable | + + + Support + + +---------+ + | Name | Relationship | Address | Phone | + + +---------+ + | Jacquie Garcia | ECON | Unknown | | + + +---------+ + Care Team Providers + +------+ + | Care Purchasing Engineer Name | Role | Phone | [...] [address] | | | | | [facility] | [facility] | | | | | [address] | [place], [place] | | | | | ([facility]) | [address] | | | | | [place], [place] | [phone] | | | | | [address] | | | | | | [phone] | | | +--------+ + + + [...] Discharge Instructions Instructions Jonny Winn RN - [facility]26/2018[facility] Instructions after EGD (Upper Endosco [...] hours or on weekends and holiday [facility] Preparer toll free [phone]. [phone] and have the GI doctor reproduction order processor paged. The provider who performed your procedure [...] or | | | | | | [id number] | | | | | | cells are identified. | | | | | | Because fine needle | | | | | | aspiration specimens are | | | | | | not always | | | | | | sales representative womens health, if the | | | | | [...] | + + + + + | [facility] DEPARTMENT | [address] | [place] [address] | | | PATHOLOGY | [address] | | | + + + + + EUS UPPER (03/26/2018 1:41 PM PDT) + + | Specimen | + + | | + + + +--- + | Narrative | Pe rformed At | + +--- + | MRN: Arcadio OVALLES | | [id number] Date: 03/26/2018Patient Name: Srinivasa SamayoaRoger #: | EN DOSCOPY | | [id number] of : 1965CSN: [id number] Type: | | | AmbulatoryRoom: GI 1Procedure: Upper EUSIndications: | | | Lymphadenopathy on CT scan, Lymphadenopathy on MRIProviders: | | | IAIN ESPARZA MD (Doctor), JONNY WINN, RN | | | (Nurse), CHONG FLOOD, Web Coordinator | | | (Web Coordinator)Referring MD: CAMPOS BENAVIDESRequesting | | | Provider: [...] | | | The Olympus [id number] Endoscope #[id number] was introduced | | | through the mouth, and advanced to the second | | | part of duodenum. The Olympus [id number] | | | AL5 Linear Echoendoscope #[id number] was | | | introduced through the [...] transduodenal approach. A stylet was used. A manual control auger press operator | | | was present and [...] Initiated On: 03/26/2018 1:41 | | | [facility] Letter to: CAMPOS BENAVIDES | [...] GOFF | [address] | [place], [place] | | | [address] | [facility] | [address] | | | TESTS | | | [...]
--- OUTSIDE RECORDS SUMMARY | ~2020-05-31 | XMS | Encounter Summary ---
Demographics + + + | Address | [address] | | | [place] [address] | + + + | Home Phone [...] Team Providers + +------+ + | Care Discharge Planner Name | Role | Phone | + [...] | | | | | | [address] [place], [place] | | | | | | [address] | | | | | | [phone] | | | +--------+ + + + [...]
--- OUTSIDE RECORDS SUMMARY | ~2020-05-31 | XMS | Encounter Summary ---
Demographics + + + | Address | [address] | | | [place] [address] | + + + | Home Phone | | + + + | Preferred Language | Unknown | + + + | Marital Status | | + + + | Lutheran Affiliation | CHR | + + + [...] Team Providers + +------+ + | Care Cleaning Technician Name | Role | Phone | + +------+ + | Campos Benavides MD | PCP | | + +------+ + Encounter Details +--------+ + + + + | Date | Type | Department | Care Team | Description | +--------+ + + + + | 02/19/ | Document-Sc | Health Information | Other, Faculty | | | 2018 | anned | Services [address] | [phone] | | | | | [address] | | | | | | Mailcode: OP17A | | | | | | [facility] | | | | | | [place], [place] | | | | | | [address] | | | | | | [phone] | | | +--------+ + + + [...]
--- OUTSIDE RECORDS SUMMARY | ~2020-05-31 | XMS | Encounter Summary ---
Demographics + + + | Address | [address] | | | [place] [address] | + + + | Home Phone [...] Team Providers + +------+ + | Care Expediter Name | Role | Phone | + [...] | | | [address] | [place], [place] | | | | | [address], | [address] | | | | | 4th floor [place], | [phone] | | | | | [place] [address] | | | | | | [phone] | Daisy Delvalle, | | | | | | KHAI [address] | | | | | | [address] | | | | | | [place], [place] | | | | | | [address] | | | | | | [phone] | | | | | | | [...]
--- OUTSIDE RECORDS SUMMARY | ~2020-05-31 | XMS | Encounter Summary ---
Demographics + + + | Address | [address] | | | [place] [address] | + + + | Home Phone | | + + + | Preferred Language | Unknown | + + + | Marital Status | | + + + | Denominational Affiliation | CHR | + + + [...] Team Providers + +------+ + | Care Sack Keeper Name | Role | Phone | + [...] | | | [facility] [address] | [facility] | Results | | | | [address] | [place], [place] | | | | | [facility], | [address] | | | | | 4th floor [place], | [phone] | | | | | [place] [address] | | | | | | [phone] | | | +--------+ + + + [...]
[~2020-05-31 10:12] MED LIST: ANDRODERM1 EAC3 TD; ASPIRIN EC81 MG PO; BUPROPION XL300 MG PO; D-20002000 UNIT PO; FENOFIBRATE160 MG PO; LIPITOR20 MG PO; LISINOPRIL20 MG PO; METFORMIN HCL500 M2 PO; MODAFINIL100 MG PO; PHENTERMINE HCL30 MG PO; PROZAC20 MG PO; TOPIRAMATE50 MG PO; ZOLPIDEM TARTRAT5 MG PO
--- OUTSIDE RECORDS SUMMARY | 2020-05-31 10:14 | XMS ---
PreManage Notification: RADHA CHOUDHURY Security Boilermaker Welder Events No recent Security Events currently on file [facility] There are no care providers on record at this time. Evonne has no Care Guidelines for this patient. Kaela VISIT COUNT (12 MO.) 1 RASHI Granda TOTAL 1 NOTE: Visits indicate total known visits. ED/UCC VISIT TRACKING (12 MO.) 05/31/2020 10:12 RASHI Abad [place] TYPE: Emergency COMPLAINT: - SOB INPATIENT VISIT TRACKING (12 MO.) No inpatient visits to display in this time frame [id number]
[2020-05-31] MEDS ORDERED: THERA-D50 MCG PO (10:28)
[2020-05-31] MEDS ORDERED: PREDNISONE20 MG PO (10:38)
[2020-05-31] MEDS ORDERED: GABAPENTIN100 MG PO (10:38)
--- NOTE | 2020-05-31 14:40 | NUR ---
PATIENT ARRIVES TO CCU VIA STRETCHER FROM ER FOR PNEUMONIA AND COVID (+). PATIENT REPORTS THAT HE TESTED POSITIVE ON 05/26. PATIENT WILL BE STARTED ON IV REMDESIVIR, IV DEXAMETHASONE AND OXYGEN. PATIENT ON 5 L NC WHEN HE ARRIVES TO CCU. PT STATES HE IS ALREADY FEELING BETTER AND ABLE TO ROLL HIMSELF FROM STRETHCER ONTO BED. PATIENT LESS SHORT OF BREATH THAN HE WAS IN THE ER. PATIENT WEARS CPAP AT NIGHT NORMALLY. PT REPORTS HAVING FEVERS AT HOME BUT AFEBRILE UPON ARRIVAL TO CCU. HR IN THE 80-90s, SINUS. PT DUE TO VOID. CONTINUE TO MONITOR.
--- NOTE | 2020-05-31 16:12 | NUR ---
PATIENT UP TO CHAIR FOR DINNER. PT ABLE TO MOVE FAIRLY INDEPENDENTLY FROM CHAIR TO BED AND IS STEADY ON FEET. PT STILL DUE TO VOID. PT WILL RECEIVE PICC LINE TOMORROW AM LIKELY. PT TOLERATED FIRST DOSE OF REMDESIVIR WELL WITHOUT ANY COMPLICATIONS. PT REMAINS ON 4-5 L OF OXYGEN, WITH CURRENT SPO2 AT 95% ON 4 L. CPAP TO BE WORN TONIGHT PATIENT NORMALLY WEARS ONE AT NIGHT FOR DANIEL. CALL LIGHT WITHIN REACH. CONTINUE TO MONITOR.
[2020-05-31] MEDS ORDERED: TRULICITY0.75 MG/0. SUB-Q (16:30)
--- NOTE | 2020-05-31 16:32 | EKG ---
[facility] [address] [facility] [place], [place] [address] Signed Normal sinus rhythm Inferior infarct , age undetermined Abnormal ECG No previous ECGs available Confirmed by MANUEL VALADEZ MD ([id number]) on 05/31/2020 4:32:18 PM Electronically Signed By: MANUEL VALADEZ MD 05/31/20 1632 PATIENT NAME: RADHA CHOUDHURY Electrocardiogram DATE OF : 61 PHYSICIAN: MANUEL VALADEZ MD REPORT #: [id number] REPORT IS CONFIDENTIAL AND NOT TO BE RELEASED WITHOUT AUTHORIZATION
[2020-05-31] MEDS ORDERED: THEREMS-M1 EACH PO (16:33)
--- NOTE | 2020-05-31 19:30 | NUR ---
REPORT RECEIVED FROM DAY SHIFT RN. PT IS RESTING IN BED, LYING ON RIGHT SIDE. SPO2 90%, RESP RATE 24 HR 80.
--- NOTE | 2020-05-31 20:20 | NUR ---
IN TO DO ASSESSMENT AND HS MEDS. PT IS SLEEPING BUT AWAKENS EASILY. ASKS TO WEAR CPAP, RT NOTIFIED TO GET CPAP MASK. PT DENIES PAIN OF SOB. IS WEARING 3L/NC WITH SPO2 89-90%. TALKED WITH PT ABOUT PRONING AND FREQUENT POSITION CHANGES, PT IS ABLE TO MOVE SELF IN BED FREQUENTLY AND STATES HE WILL DO SO. ICE WATER GIVEN. PT INSTRUCTED TO USE CALL LIGHT FOR NEEDS, NOT TO GET UP ON HIS OWN.
--- NOTE | 2020-05-31 21:00 | NUR ---
RT IN TO WORK WITH PT AND TRY CPAP, RT REPORTS THAT PT UNABLE TO TOLERATE CPAP MASK AND PRESSURES. PT REMAINS ON O2/NC/3L.
--- NOTE | 2020-05-31 23:15 | NUR ---
PT SATS HAVE BEEN DROPPING TO 85%, IN TO WORK WITH PATIENT WITH POSITIONING AND COUGHING, UNABLE TO GET SATS UP DESPITE TURNING O2 UP. PT CURRENTLY ON 15L OXYMASK AND SPO2 92%. DR VALADEZ CALLED, ORDER GIVEN TO TRY VAPOTHERM. RT AWARE AND WILL GET IT SET UP.
--- NOTE | 2020-06-01 00:22 | NUR ---
RT PLACED PT ON VAPOTHERM 25L/50% SATS 88-92%. STATES IT IS NOT COMFORTABLE BUT WILL TRY TOLERATING IT. RESP RATE 24-30. CONT TO MONITOR.
--- NOTE | 2020-06-01 03:00 | NUR ---
IN TO CHECK ON PT, DENIES NEEDS AT THIS TIME, CONTINUES ON VAPOTHERM 25L/50% WITH SPO2 90-94%.
--- NOTE | 2020-06-01 06:52 | NUR ---
IN TO CHECK ON PT AND DRAW BLOOD. PT VOIDED 300ML VERY DARK CONCENTRATED URINE INTO URINAL. DENIES PAIN OR SOB, ASKS TO HAVE A BREAK FROM THE VAPOTHERM. PT TRIAL ON OXYMASK- 93% ON 15L.
--- NOTE | 2020-06-01 06:56 | NUR ---
DR VALADEZ INFORMED OF LOW URINE OUTPUT, ORDER GIVEN FOR 1L LR BOLUS OVER ONE HOUR AND THEN TO START IVF LR AT 75ML/HR. PT CURRENTLY AWAKE UP IN BED, MAINTAINING O2 SATS ON OXYMASK.
--- NOTE | 2020-06-01 08:40 | NUR ---
IN PATIENT'S ROOM FOR ASSESSMENT AND MEDS, BREAKFAST. PT IN BED AND STAETS HE IS DOING OKAY. PT REPORTS HAVING SOME SHORTNESS OF BREATH TODAY, BUT WHEN HE LAYS STILL, IT RESOLVES. IV BOLUS FINISHING. IV FLUIDS TO BE STARTED AT 75 ML/HR ONCE BOLUS COMPLETE. PT NOW EATING BREAKFAST. VAPOTHERM SETTINGS TITRATED UP TO 35 L AND DOWN TO 65% PER RT. PT REPORTS THAT HE HAS A VIDEO CALL WITH WORK TOMORROW THAT HE WOULD LIKE TO STILL DO. DISCUSSED WIHT PATIENT THE SEVERITY OF HIS CURRENT ILLNESS, AND THAT WOULD JUST NEED TO BE ASSESSED TOMORROW. INADEQUATE URINE OUTPUT OVERNIGHT - BOLUS AND IV FLUIDS ORDERED.
[2020-06-01] MEDS ORDERED: TYLENOL325 MG PO (10:18)
--- NOTE | 2020-06-01 10:36 | NUR ---
PICC LINE RN IN ROOM PLACING PICC AT THIS TIME. CHEST XRAY BEING TAKEN.
--- NOTE | 2020-06-01 10:58 | NUR ---
DR. VALADEZ IN ROOM TO SEE PATIENT AT THIS TIME. PICC LINE COMPLETE AND APPROVAL FOR USE GIVEN.
--- NOTE | 2020-06-01 11:11 | NUR ---
PICC INSERTION NOTE. ORDERS RECIEVED TO EVALUATE RADHA FOR POSSIBLE PICC INSERTION TO [facility]. AFTER REVIEWING THE CHART AND INTERVIEWING THE PT, NO ABSOLUTE CONTRAINDICATIONS WERE FOUND. RISKS AND COMPLICATIONS OF PICC LINES WERE DISCUSSED WITH RADHA AND INFORMED CONSENT SIGNED PRIOR TO THE START OF THE PROCEDURE. THE RIGHT BASILIC VEIN WAS IDENTIFIED WITH U/S AND FOUND TO BE ABLE TO ACCEPT AN 8 FR LINE. THE LENGTH OF THE VESSEL WAS INSPECTED AND REMAINS A GOOD SITE FOR A PICC. THE VEIN WAS ACCESSED AT A DEPTH OF 1.5CM AND THERE WERE NO DIFFICULTIES ADVANCING THE IV, GUIDEWIRE, INTRODUCTER, OR PICC. MAGNET TRACKING WAS USED WHILE ADVANCING THE LINE AND SOME MANIPULATION AND POSITION CHANGE WAS NEEDED IN ORDER TO GET THE LINE TO DROP INTO A CENTRAL LOCATION. A SINGLE CXR WAS TAKEN AND THE LINE WAS APPROVED FOR USE BY DR HEBERT. THE PT TOLERATED THE PROCEDURE WELL. HE UDERSTANDS THAT HE NEEDS TO ASK HIS CARE TEAM IF HE ANY QUESTIONS REGARDING CARE OF HIS PICC.
--- NOTE | 2020-06-01 11:49 | NUR ---
PATIENT UP IN CHAIR FOR LUNCH TIME. PT DESATS WITH THIS ACTIVITY AND VAPOTHERM TURNED UP TO 60% FI02. PATIENT USING IS AND ACAPELLA. PT STANDS TO VOID AND VOIDS ONLY 200, CONCENTRATED URINE. IVF INFUSING AT 75 ML/HR. WILL NOTIFY DR. VALADEZ OF CONTINUED LOWER URINE OUTPUT. LUNCH ORDERED FOR PATIENT. CONTINUE TO MONITOR.
--- NOTE | 2020-06-01 13:39 | NUR ---
DISCUSSED URINE OUTPUT WITH DR. VALADEZ. ORDER REC'D TO INCREASE IVF TO 125 ML/HR. PATIENT GETS SELF BACK TO BED AND IS CURRENTLY RESTING, WITH SP02 OF 97%. VAPOTHERM SETTINGS ARE 60% AND 40 L. HR IN THE 60s. CONTINUE TO MONITOR.
--- NOTE | 2020-06-01 14:12 | NUR ---
PATIENT SLEEPING ON HIS LEFT SIDE IN BED AT THIS TIME. PT NOTED TO BE SNORING SOME. IVF INCREASED TO 125 ML/HR. PT STILL HAS ONLY VOIDED THE ONE TIME TODAY SO FAR. WILL CONTINUE TO MONITOR.
[2020-06-01] MEDS ORDERED: HYDROCHLOROTHIA25 MG PO (14:33)
--- NOTE | 2020-06-01 14:34 | NUR ---
MED REC COMPLETE
--- NOTE | 2020-06-01 15:28 | NUR ---
PATIENT IN ISOLATION DUE TO +COVID. SPOKE WITH PATIENT BY PHONE. PATIENT LIVES WITH . IS EMPLOYED AND STILL DRIVES. DENIES USING ANY DME FOR AMBULATION. DOES USE CPAP AT NIGHT, NO OXYGEN. PATIENT USES [facility] FOR PCP AND RX. WILL USE [facility] IF [facility] DOESN'T HAVE MED. PATIENT DENIES WORRIES OF AFFORDING MEDICATIONS, FOOD AND UTILITIES. PATIENT FEELS SAFE TO RETURN HOME AT DISCHARGE, FAMILY WILL PICK HIM UP. HE STATES HIS AND SON ARE ALSO +COVID AND ARE QUARANTINING AT HOME. HE HAS NO QUESTIONS AT THIS TIME.
--- NOTE | 2020-06-01 15:57 | NUR ---
RT IN TO SEE PATIENT AT THIS TIME. SP02 IS 98% WHILE PATIENT LAYING ON LEFT SIDE IN BED ON VAPOTHERM. PT'S BROUGHT IN HIS OWN HOME CPAP AND RT LOOKING AT THIS CPAP. CONTINUE TO MONITOR.
--- NOTE | 2020-06-01 19:00 | NUR ---
Report received, orders acknowledged. Patient sitting up at edge of bed with feet on floor, using the IS. SpO2 of 89% on vapotherm during activity. Vapotherm settings at 40L, Fi02 of 50%. Call light within reach.
--- NOTE | 2020-06-01 20:30 | NUR ---
Patient laying in bed on left side, reading cell phone. Vapotherm in place, settings of 40L, Fi02 of 50%. Patient SpO2 of 96%, respirations even and unlabored. Denies SOB or cough. HR in the 60's. 175 mls of concentrated urine emptied from urinal. Vital signs taken, assessment complete. PM medications given. BG of 202, 4 units of insulin given. LR infusion D/C'd, patient saline locked. PICC line flushes, 0 cm exposed, window dressing intact. Patient denies further needs at this time, call light within reach.
--- NOTE | 2020-06-01 22:53 | NUR ---
Patient laying left side, respirations even and unlabored. HR in the 60's, Sp02 of 94% on vapotherm. Denies needs at this time, call light within reach.
--- NOTE | 2020-06-02 01:29 | NUR ---
Patient laying on left side, respirations even and unlabored. RR of 18, SpO2 of 99%. Vapotherm in place, settings of 40L and 50% Fi02. Call light within reach.
--- NOTE | 2020-06-02 02:19 | NUR ---
Patient sleeping in bed, respirations even and unlabored. Vapotherm in place, settings of 40L, 50% Fi02. Sp02 of 100%. Call light within reach.
--- NOTE | 2020-06-02 04:05 | NUR ---
Patient laying on left side, awake and using cell phone. Respirations even and unlabored with an SpO2 of 95%. Vapotherm in place, settings at 40L and 50% Fi02. Vital signs taken, assessment complete. Urinal emptied with 250 mls of concentrated urine. Patient denies further needs at this time, call light within reach.
--- NOTE | 2020-06-02 05:15 | NUR ---
Patient sleeping in bed, respirations even and unlabored. Sp02 of 99% on vapotherm: settings at 40L and 50% Fi02. PICC line assessed, flushes and draws blood per protocol. Labs drawn and sent off to lab. Patient denies needs at this time, call light within reach.
--- NOTE | 2020-06-02 07:31 | NUR ---
REPORT RECEIVED FROM NEPTALI RIOS. PT SITTING UP IN BED, WATCHING TV. VAPO THERM AT 40L AND 50%. O2 SATURATION AT 97%. PT ANTICIPATING BREAKFAST, ORDER PLACED. NO ADDITIONAL REQUESTS OR CONCERNS AT THIS TIME. CALL LIGHT WITHIN REACH.
--- NOTE | 2020-06-02 08:00 | NUR ---
MORNING ASSESSMETN AND MEDICATION DUE. THIS RN TO BEDSIDE FOR ROUNDS WITH MD. PT DENIES PAIN AND NAUSEA AND REPORTS A GOOD APPITITE. MD ASCULTATED TO LUNG SOUNDS, REPORTS CLEAR LUNG SOUNDS AT THIS TIME. VAPOTHERM AT 40LPM AND 50%. PT WEANED BY MD TO 45%. PT UP TO CHAIR FOR BREAKFAST. O2 DROPING TO LOW 80'S WHILE EATING. AFTER EATING PT TOLERATING VAPOTHERM AT 40LPM AND 45% WITH O2 SATURATION ABOVE 90%. RT TO BEDSIDE, PLANS TO TRY PT WITH CPAP AROUND 1000. MEDICATIONS GIVEN. PICC LINE ASSESSED, UNABLE TO FLUSH OR OBTAIN BLOOD REUTRN FROM RED LUMEN. WILL CONTACT PICC LINE RN FOR CONSULTATION. PURPLE LUMEN SHOWS GOOD BLOOD RETURN, NOW HEPARIN LOCKED. PT EATS 100% OF BREAKFAST. NO ADDITIONAL REQUESTS OR COMPLAINTS. REMAINS UP TO CHAIR. LINENS CHANGED. CALL LIGHT WITHIN REACH.
--- NOTE | 2020-06-02 09:28 | NUR ---
THIS RN TO BEDSIDE TO CHECK ON PT. PT REPORTS HE HAS A TELEPHONE MEETING AT 1000 AND WOULD LIKE TO HAVE THE CPAP TRIAL NOW. CPAP PLACED BY RT CAMILA WITH 6L O2 BLEAD IN. PT MAINTING O2 SATRUATIONS ABOVE 92% WITH CPAP IN PLACE. PT DENIES REQUESTS OR COMPLAINTS. CALL LIGHT WITHIN REACH. BED RAILS UP.
--- NOTE | 2020-06-02 10:27 | NUR ---
THIS RN TO ROOM TO CHECK ON PT. PT RESTING IN BED. PT HAS REMOVED CPAP AND HAS VAPOTHERM BACK IN PLACE, SETTINGS AT 40LPM AND 45% FIO2. O2 SATURATION AT 94%. PT ANTICIPATING PHONE CALL MEETING. NO REQUESTS OR COMPLAINTS AT THIS TIME.
--- NOTE | 2020-06-02 10:33 | NUR ---
TERESA, PICC LINE RN CALLED REGARDING LACK OF BLOOD RETURN AND ABILITY TO FLUSH LINE. TERESA STATES A PICC LINE RN WILL BE DOWN TO TROUBLE SHOOT LINE THIS SHIFT.
--- NOTE | 2020-06-02 10:51 | NUR ---
APPLE, PICC LINE RN, TO BEDSIDE. PICC LINE EXAMINED. CLAVE CHANGED TO RED LINE, BRISK BLOOD RETURN NOTED. LINE FUSHED AND HEPARIN LOCKED BY NEPTALI CHIU. PT DENIES ADDITIONAL REQUESTS OR COMPLAINTS. O2 AT 94 ON VAPO THERMA AT 40LPM AND 45% FIO2. CALL LIGHT WITHIN REACH. BED RAILS UP.
--- NOTE | 2020-06-02 11:01 | NUR ---
PICC EVALUATION. REPORTED THAT RED LUMEN IS NOT FLUSHING OR DRAWING BLOOD. INITAL RESISTANCE TO FLUSH NOTED. CLAVE CONNECTOR REMOVED AND 10CC SYRINGE PLACED DIRECTLY ON RED LUMEN. RESISTANCE TO FLUSH OVERCOME WITH MODERATE PRESSURE ON SYRINGE. THE LINE NOW FLUSHES AND DRAWS BLOOD EASILY. A NEW CLAVE WAS PLACED ON THE RED PORT AND THE LINE HEPRANIZED WITH 2 ML 50U/ML HEPARIN. REPORT GIVEN.
--- NOTE | 2020-06-02 12:00 | NUR ---
NOON ASSESSMENT DUE. PT SITTING AT EDGE OF BED AND TALKING ON PHONE. AFTER PHOEN CALL PT REPORTS 0/10 PAIN AND DENIES NAUSEA. PT DENIES SHORTNESS OF BREATH AND REPORS HIS BREATHING "FEELS BETTER." LUNGS HEART AND BOWEL TONES NOT ASCULTATED RELATED TO PAPAR UNIT. BOWEL SOFT. PT DENIES CONSTIPATION. NORMAL WORK OF BREATHING NOTED. LOTION APPLIED TO DRY SKIN. VITALS TAKEN. 2 UNITS SLIDING SCALE INSULIN GIVEN. PT REMAINS UP TO EDGE OF BED FOR LUNCH AND CONTINUES TALKING ON PHONE. RATE OF SPEACH AND BREATHES WNL. PT ABLE TO SPEAK IN NORMAL SENTANCES WITHOUT PAUSING FOR BREATHS. NO ADDITIONAL REQUESTS OR COMPLAINTS. PT ENCOURAGE TO DRINK PO FLUIDS, FRESH WATER AND 7-UP PROVIDED. NO CALL LIGHT WITHIN REACH.
--- NOTE | 2020-06-02 14:26 | NUR ---
THIS RN TO ROOM TO CHECK ON PT. PT SITTING ON EDGE OF BED. PT DENIES PAIN AND NAUSEA. PT REPORTS HE HAS NO REQUESTS AT THIS TIME. PT REMAINS ON VAPOTHERM AT 30LPM AND 40% FIO2 PER RT. O2 SATURATIONS AT 92%. BED RAILS UP. CALL LIGHT WITHIN REACH.
--- NOTE | 2020-06-02 14:59 | NUR ---
SAMANTHA AT DR. LUNDBERG'S OFFICE (PTS PRIMARY CARE DOCTOR). AT [facility] CALLED AND UPDATED PER DR. LUNDBERG'S REQUEST. QUESTIONS ASKED AND ANSWERED.
--- NOTE | 2020-06-02 15:56 | NUR ---
AFTERNOON ASSESSMENT AND MEDICATION DUE. PT RESTING IN BED. PT WEANED TO HIGH FLOW NASAL CANULA AT 15 LITERS. PT TOLERATING WELL WITH O2 SATURATION ABOVE 92%. NORMAL WORK OF BREATHING NOTED. PT REPORTS OCCATIONAL DRY COUGH THAT IS "BETTER." CORNET USED X5. I.S. USE DEMONSTRATED REACHING 2000ML. ABDOMEN SOFT. UNABLE TO LISTEN TO LUNG, HEART AND BOWEL TONES R/T PAPAR. PT DENIES CONSTIPATION. PT VOIDING QUANTITY SUFFICENT, URINE DOES REMAIN DARK IN COLOR. PO FLUIDS ENCORUAGED. DINNER ORDER PLACED. PT PROVIDED WITH BED BATH WIPES, SHAVING CREAM AND ORAL CARE ITEMS. PT UP TO DO BED BATH INDEPENDANTLY. PT TALKING WITH ON PHONE. NO ADDITIONAL REQUSTS OR COMPLAINTS. CALL LIGHT WITHINH REACH.
--- NOTE | 2020-06-02 16:48 | NUR ---
BLOOD SUGAR DUE. PT UP TO EDGE OF BED, FINISHING SHAVE. IV INFUSION COMPLETE. PICC LINE ASSESSED, WNL. BRISK BLOOD RETURN NOTED. PICC LINE FLUSHED AND HEPARIN LOCKED PER PROTOCOL. ALCOHOL CAP APPLIED. BLOOD SUGAR TAKEN, INSULIN GIVEN. PT EATING DINNER. NO ADDITIONAL REQUESTS OR COMPLAINTS AT THIS TIME. CALL СВЕТЛАНА VILLAFUERTE.
--- NOTE | 2020-06-02 17:51 | NUR ---
PT HERE FOR COVID POSITIVE PNEUMONIA. PT INDEPENDANT IN ROOM AND TOLERATING 60G CARB DIET WITH GOOD APPITITE. PT BEGAIN SHIFT ON VAPOTHERM WITH 40LPM AND 50% FIO2. PT WEANED THIS SHIFT TO HIGH FLOW NASAL CANULA AT 15L, TOLERATING WELL WITH O2 SATURATIONS ABOVE 92%. CORNET AND I.S. USE ENSURED. PT UP TO CHAIR AND UP IN ROOM, STEADY ON FEET. PICC LINE HEPARIN LOCKED, CLAVES CHANGED TO ENSURE BLOOD RETURN. PT AFEBRIAL THIS SHIFT. BLOOD SUGAR CHECKS WITH SLIDING SCALE INSULINE. CPAP TRIAL THIS SHIFT WITH GOOD RESULTS, PT TOLERATED WELL. PT VOIDIG QUANITYT SUFFFICIENT. PT USES CALL LIGHT APPROPRAITLY.
--- NOTE | 2020-06-02 18:22 | NUR ---
THIS RN TO ROOM TO CHECK ON PT. PT RESTING ON LEFT SIDE WITH EYES CLOSED. O2 AT 100% ON HIGH FLOW NASAL CANULA AT 15L. PT ALLOWED TO REST. BED RAILS UP. CALL LIGHT WITHIN REACH.
--- NOTE | 2020-06-02 19:00 | NUR ---
Report received, orders acknowledged. Patient laying in bed with high flow oxygen set at 15L in place, SpO2 of 99%. Patient denies needs at this time, call light within reach.
--- NOTE | 2020-06-02 20:15 | NUR ---
Patient laying in bed with high flow oxygen at 15L in place. SpO2 of 95%, RR in the mid-20's. Patient denies SOB or pain. Intermittent dry cough. Patient encouraged to continue using IS and acapella. Vital signs taken, assessment complete. PM medications given. Patient requests melatonin to aid with sleep, will follow up with MD. RT in room. Patient's personal CPAP put in place with 6L bleed in. Sp02 in mid-90's on CPAP. Patient denies needs at this time, call light within reach.
--- NOTE | 2020-06-02 23:45 | NUR ---
Patient laying in bed. CPAP in place with 6L bleed in. Patient urinated on underwear while using urinal. Patient up to chair independently, steady gait, while new linens put on bed. While patient standing to change underwear, begins to desaturate to low 80's with labored breathing. Oxygen increased to 15L with CPAP in place. Patient sitting in chair with labored breathing. Saturations begin to climb slowly. Patient states "I'm okay, I'm recovering." SpO2 increases to the low 90's. Patient back to bed independently. Oxygen titrated down to 6L bleed in, SpO2 ranging from 93-95%. Melatonin provided per patient request. Denies further needs at this time, call light within reach.
--- NOTE | 2020-06-03 01:02 | NUR ---
Patient sleeping in bed, respirations even and unlabored. SpO2 of 95% on CPAP with 6L bleed in. RR of 22, HR in the 90's. Occasional dry cough. Call light within reach.
--- NOTE | 2020-06-03 01:58 | NUR ---
Patient sleeping in bed, respirations even and unlabored. CPAP in place at 6L, SpO2 of 96%. RR of 20. Call light within reach.
--- NOTE | 2020-06-03 02:57 | NUR ---
Patient sleeping in bed, respirations even and unlabored. RR of 20, SpO2 of 94%. CPAP in place with 6L. Call light within reach.
--- NOTE | 2020-06-03 06:00 | NUR ---
Patient sleeping in bed, respirations even and unlabored. Vapotherm in place, settings at 40L and 60% Fi02. Sp02 in the upper 90's, RR of 20. Patient rouses easily to voice. Labs drawn off of PICC line, flushes and returns blood per protocol. New claves on PICC line. Patient denies needs at this time, call light within reach.
--- NOTE | 2020-06-03 09:18 | NUR ---
PT IS ALERT AND ORIENTED X4, DENIES PAIN AND NAUSEA. PT REPORTS FEELING SOB ONLY WITH ACTIVITY, HOWEVER STATES THAT THIS HAS IMPROVED SINCE ADMISSION. PT IS COOPERATIVE AND POLITE. ABLE TO REPOSITION SELF IN BED TO EAT BREAKFAST. PT PICC SITE IS INTACT, SLIGHTLY SLUGGISH, BLOOD RETURN OBTAINED FROM BLUE LUMIN NOT FROM RED, HEPARIN FLUSH INFUSED, WILL CONTINUE TO MONITOR.
--- NOTE | 2020-06-03 11:05 | NUR ---
pt laying on left side in bed, appears to be resting, no distress noted, resp are even and unlabored. pt has own cpap mask in place with 6L o2 bled in.
--- NOTE | 2020-06-03 12:53 | NUR ---
PT STILL UNDER PECAUTIONS, UNABLE TO VISIT. WILL BE AVAILABLE NEEDED
--- NOTE | 2020-06-03 19:31 | NUR ---
PT ABLE TO REPOSITION SELF INDEPENDENTLY ALL SHIFT. PT REMAINS ALERT AND ORIENTED X4, COOPERATIVE AND POLITE. PT ABLE TO EAT ALL THREE MEALS, NO NAUSEA REPORTED. PT DENIES PAIN ALL SHIFT. PT REPORT SOB WITH ACTIVITY HAS IMPROVED THIS AFTERNOON. PT IS ABLE TO REST OFF AND ON ALL DAY. PT REMAINS ON CPAP WITH 6L O2 BLED IN, PT REFUSES OFFER OF VAPOTHERM OR HIGH FLOW NC O2 THERAPY, REPORTING THAT CPAP IS "MORE COMFORTABLE". PICC LINE SITE IS INTACT, NO REDNESS OR SWELLING NOTED, BLOOD RETURN OBTAINED FROM BOTH LUMINS VIA THREE WAY STOPCOCK, HEP LOCKED AFTER REMDESIVER ADMIN. PT FAMILY HAS BEEN IN CONTACT VIA PERSONAL CELL PHONE.
--- NOTE | 2020-06-03 19:45 | NUR ---
SHIFT REPORT RECEIVED. PATIENT RESTING IN BED. CALL LIGHT IN REACH. VS STABLE. PATIENT DENIES ANY NEEDS.
--- NOTE | 2020-06-03 21:30 | NUR ---
PATIENT IN RECLINER RESTING WITH EYES CLSOED. WAKES EASILY WHEN RN ENTERS ROOM. TOLERATING 6L VIA CPAP. LINENS CHANGED. PATIENT DENIES PAIN/SOB. ROOM CLEANED. VS STABLE. URNAL EMPTIED. CALL LIGHT IN REACH.
--- NOTE | 2020-06-04 01:00 | NUR ---
PATIENT RESTING IN BED WATCHING TV. DENIES ANY CONCERNS. URNAL EMPTIED. VS STABLE. PATIENT TOLERATING CPAP WITH 6L. PATIENT DENIES ANY NEEDS AT THIS TIME. CARDIAC LEADS REPLACED.
--- NOTE | 2020-06-04 04:00 | NUR ---
PATIENT RESTING WITH CPAP IN PLACE. VS STABLE. PATIENT DENIED ANY NEEDS. CALL LIGHT IN REACH.
--- NOTE | 2020-06-04 06:00 | NUR ---
MORNING LABS DRAWN. PATIENT FEELING WELL THIS MORNING AND READY FOR BREAKFAST. TOLERATING 6L CPAP AND REPORTS IMPROVEMENT IN SOB WITH ACTIVITY. PATIENT HAS BEEN INDEPENDENT IN THE ROOM. TITRATED TO 4L. PATIENT VS STABLE. URNAL EMPTIED, URINE IS DARK DOMINIK COLORED. PATIENT DENIED ANY NEEDS. CALL LIGHT IN REACH.
--- NOTE | 2020-06-04 08:24 | NUR ---
PATIENT CALLED FOR BR ASSISTANCE. PATIENT AMBULATED BY HIMSELF W/ NO PROBLEM. BACK TO BED, CPAP ON. WASHCLOTH GIVEN FOR FACE AND HANDS. FRESH ICEWATER , CALL LIGHT IN REACH
--- NOTE | 2020-06-04 09:07 | NUR ---
PT SITTING UP AT THE SIDE OF THE BED, CPAP IN PLACE WITH 4L O2 BLEAD IN, O2 SATS ARE 92%. PT DENIES PAIN, NAUSEA, AND SOB AT THIS TIME. PT REPORTS SOME SOB WITH AMBULATION TO THE BATHROOM AND BACK, HOWEVER STATES IT HAS IMPROVED SINCE YESTERDAY. PICC LINE SITE IS INTACT, BOTH LUMINS RETURN BLOOD AND FLUSH EASILY. PT VITALS ARE WNL.
--- NOTE | 2020-06-04 11:25 | NUR ---
pt sitting up in chair with cpap in place, o2 sats are 94%. pt is alert and oriented x4. lunch order obtained.
--- NOTE | 2020-06-04 12:10 | NUR ---
LUNCH BROUGHT IN TO PT ROOM. PT IS AWAKE AND ALERT X4, LAYING IN THE BED WATCHING [employer] ON CELL PHONE. PT DENIES PAIN, NAUSEA, AND SOB. PT IS ON ROOM AIR AT THIS TIME, O2 SATS ARE 87-91%. ALL OTHER VITALS ARE WNL. PICC LINE IS INTACT, NO REDNESS OR SWELLING NOTED, SITE IS HEP LOCKED.
--- NOTE | 2020-06-04 14:15 | NUR ---
MD NGUYENO IN TO SEE PATIENT. ISSUES ADDRESSED WITH PATIENT AND MD. ALL QUESTIONS ANSWERED. NO OTHER NEEDS AT THIS TIME. WILL CONTINUE TO CLSOELY MONITOR.
--- NOTE | 2020-06-04 14:40 | NUR ---
pt awake and alert x4 sitting up at the edge of the bed with cpap in place, 02 sat is 95%. pt denies pain, nausea, and sob at this time. pt voiding greater than qs into urinal in bathroom. pt denies any needs at this time.
--- NOTE | 2020-06-04 15:33 | NUR ---
PATIENT RESTING AT THIS TIME. REMINDED PATIENT TO CALL IF HE NEEDS SOMETHING. PATIENT RESTING IN BED AT THIS TIME. WILL CONTINUE TO CLOSELY MONITOR.
--- NOTE | 2020-06-04 15:45 | NUR ---
REPORT GIVEN TO FRANK GUNDERSON ON MED/SURG VIA PHONE. ALL QUESTIONS ANSWERED. PLAN MADE TO LET PT AMBULATE TO 118 FROM 127 WITH 02 FOR SUPPORT.
--- NOTE | 2020-06-04 16:20 | NUR ---
PT ABLE TO AMBULATE TO 118 FROM 127. ALL PERSONAL BELONGINGS TRANFERED WITH HIM. PT REN ACTIVITY WELL, ON 2L O2 VIA NASAL CANULA. MEDS AND PT CHART TAKEN TO MED/SURG. FRANK GUNDERSON IN ROOM AT BEDSIDE, ALL QUESITIONS ANSWERED. CPAP TRANFERED BY KB INTO 118.
--- NOTE | 2020-06-04 21:15 | NUR ---
PATIENT BASICALLY INDEPENDANT IN ROOM USING THE BATHROOM AND WALKING IF MOVING SLOW, NO SOB. PICC FLUSHES AND DRAWS WELL. SATS IN THE 90'S ON RA. PATIENT HAVING NO PAIN. WATER GLASS REFILLED AND PATIENT GIVEN A SANDWICH BOX. PATIENT HAD NO OTHER NEEDS AND I LEFT THE ROOM IN MY PAPR JUST I HAD ENTERED IN IT. PATIENT IS HAVING NO DISTRESS. CALL LIGHT IN REACH.
--- NOTE | 2020-06-04 23:15 | NUR ---
PATIENT RESTING QUIETLY, EYES CLOSSED, RESPIRATIONS EVEN, CALL LIGHT IN REACH, SAT ON TELE MONITOR=94. CALL LIGHT IN REACH.
--- NOTE | 2020-06-05 01:26 | NUR ---
PATIENT SAID HE IS DOING FINE AND HAS NO NEEDS AT THIS TIME, WHEN I CHECKED IN ON HIM LAYING IN BED ON HIS CPAP. CALL LIGHT IN REACH.
--- NOTE | 2020-06-05 03:06 | NUR ---
PATIENT RESTING QUIETLY IN NO NOTEABLE DISTRESS, EYES CLOSED, CALL LIGHT N REACH, CPAP ON AND SATS 94%,REPLACED TELE BATTERY.
--- NOTE | 2020-06-05 07:02 | NUR ---
PATIENT SAYS HE HAS SLEPT WELL, GOT UP VOIDED X4 AND HAD 1BM. NO PAIN. WAS ABOVE 90% SAT ON RA, BEEN TRIALING HIMSELF OFF O2, BUT SLEPT WITH 4L/BLEED IN O2 TO CPAP. PATIENT WANTS TO GET OUT OF HERE TODAY. NO INSULIN COVERAGE NEEDED LAST NIGHT. CALL LIGHT IN REACH.
--- NOTE | 2020-06-05 09:30 | NUR ---
Pt reports feeling well this am, denies sob and or chest pain now and throughout the night. Pt reports he would like to go home today. Oxygen saturations mid to high 90's upon am assessment, other vital signs are stable. Pt denies needs at this time. Personal supplies and call light within reach.
--- NOTE | 2020-06-05 09:49 | NUR ---
Pt in bed resting, awakes to verbal stimuli. Pt denies pain and sob. Vital signs are stable at this time. Breakfast orders. Pt denies needs at this time. Call light within reach.
--- NOTE | 2020-06-05 14:04 | NUR ---
Pt sitting up in bed, alert and oriented x4, reports doing well. Respirations even and non labored, oxygen saturation level of 95% on 4l per nc. Pt denies sob.
--- NOTE | 2020-06-05 14:59 | NUR ---
Pt's oxygen decreased a couple times into the mid 80's then rebounded fairly quickly back to the low to mid 90's. Pt denies distress. Pt reported he has walked around in his room several times to keep moving. ISS use encouraged.
--- NOTE | 2020-06-05 15:59 | NUR ---
HOME O2 EVAL COMPLETED, WAS NOT ABLE TO STABLIZE O2 SATS WITH ACTIVITY USING NC, PT DOES TOLERATE 4L/M NC AT REST SATS 90-94%
--- NOTE | 2020-06-05 17:45 | NUR ---
In to check on patient, take vital signs and admin scheduled medications. Pt reports he is very tired and is not wanting his vitals/medications at this time. Pt and family requesting patient to rest for the time being. Call light within reach. Encouraged them to call if there's any needs.
--- NOTE | 2020-06-05 19:30 | NUR ---
REPORT RECEIVED FROM DAY SHIFT RN. PT LYING IN BED, NAD. SpO2 95% ON 4L/NC.
--- NOTE | 2020-06-05 20:50 | NUR ---
IN TO ASSESS PT. PT ALERT AND ORIENTED LYING IN BED. RR EVEN AND UNLABORED. UNABLE TO AUSCULTATE LUNG SOUNDS ETC..DUE TO PAPR USE. PT DENIES SOB OR CP. REPORTS OCCASIONAL PRODUCTIVE COUGH AND THAT HE "SWALLOWS WHAT COMES UP". EVENING MEDS ADMINISTERED PER EMAR. PT DENIES PAIN OR NAUSEA. PICC LINE FLUSHED PER PROTOCOL. BRISK BLOOD RETURN NOTED IN BOTH LUMENS. HEP LOCKED PER EMAR. WHITE BOARD UPDATED. CALL LIGHT WITHIN REACH. PT DENIES FURTHER NEEDS.
--- NOTE | 2020-06-05 22:30 | NUR ---
PT ABLE TO PUT CPAP ON INDEPENDENTLY. SpO2 99% WITH 4L OXYGEN BLEED IN.
--- NOTE | 2020-06-06 00:19 | NUR ---
PT LYING IN BED ON RIGHT SIDE. CPAP IN PLACE. SpO2 94%. HR 55. NO APPARENT DISTRESS.
--- NOTE | 2020-06-06 02:33 | NUR ---
PT UP TO BR INDEPENDENTLY TO DO SPONGE BATH. BACK TO BED, REN WELL. DENIES SOB. SpO2 94% ON 4L/NC.
--- NOTE | 2020-06-06 05:08 | NUR ---
ASSESSMENT COMPLETE. BLOOD DRAWN FOR MORNING LABS PER PROTOCOL. PT DENIES SOB OR CP. REPORTS "MY SHORTNESS OF BREATH WHEN I'M UP WALKING IS GETTING BETTER". PT IN BED WITH CPAP AND 4L BLEED IN AT THIS TIME. DENIES PAIN OR NAUSEA. VS WNL. FRESH WATER PROVIDED. PT DENIES FURTHER NEEDS. CALL LIGHT IN REACH.
--- NOTE | 2020-06-06 07:11 | NUR ---
REPORT RECEIVED FROM NEPTALI FISCHER. PT RESTING ON LEFT SIDE WITH EYES CLOSED, CPAP IN PLACE. COUGH NOTED. O2 SATURATION AT 97% ON 4L WITH HR AT 76. PT ALLOWED TO REST. BED RAILS UP. CALL LIGHT WITHIN REACH.
--- NOTE | 2020-06-06 08:00 | NUR ---
MORNING ASSESSMENT AND MEDICAITONS DUE. PT UP TO CHAIR INDEPENDANTLY. PT REPORTS HE HAS USED THE RESTROOM AND DONE MORNING CARES. PT TOELRATING ACTIVITES ON 4L O2 BY NC WITH O2 SATRUATIONS ABOVE 92%. ASSESSMENT DONE. PT DENIES PAIN AND NAUSEA. UANBLE TO ASCULTATE LUNG, HEART AND BOWEL SOUNDS DUE TO PAPAR UNIT. OCCATONAL DRY COUGH NOTED. PICC LINE ASSESSED, BRISK BLOOD RETURN NOTED FROM BOTH LUMENS. LINE FLUSED AND HEPARIN LOCKED PER PROTOCOL, ALCOHOL CAPS APPLIED. MEDIAL EDGE OF DRESSING SLIGHTLY LOOSE, REINFORCED WITH TAPE, WILL CHANGE DRESSING IF LINE IS NOT DC'D TODAY. PT REPORTS HE IS ANTICIPATING DISCHARGE. MEDICATIONS GIVEN. VITALS TAKEN. PT EATING BREAKFAST UP IN CHAIR. NO ADDITIONAL REQUESTS OR COMPLAINTS. CALL LIGHT WITHIN REACH.
--- NOTE | 2020-06-06 10:03 | NUR ---
THIS RN TO ROOM TO CHECK ON PT. MD IN ROOM FOR ROUNDS WITH PT. PT UPDATED ON PLAN OF CARE AND PLAN FOR DISCHARGE. OXYGEN SAFETY REVIEWED WITH PT. PT VERBALIZES UNDERSTANDING. ISOLATION AND COVID-19 SAFETY FOR DISCHARGE REVIEWED WITH PT. PT VERBALIZES UNDERSTANDING. NO ADDITIONAL REQUESTS OR COMPLAINTS. PT UP TO DRESS SELF, STEADY ON FEET AND INDEPENDANT IN ROOM. NO ADDITIONAL REQUESTS OR COMPLAINTS AT THIS TIME. CALL LIGHT WITHIN REACH.
[2020-06-06] MEDS ORDERED: DECADRON6 MG PO (10:16)
--- NOTE | 2020-06-06 11:32 | NUR ---
PT READY FOR DISCHARGE. PT UP TO CHAIR. DENIES PAIN AND NAUSEA, STABLE ON 4L O2 BY NC WITH O2 STATURATIONS ABOVE 92%. DISCHARGE INSTRUCTIONS REVEIWED WITH PT. PT VERBALIZES UNDERSTANDING OF MEDICATIONS, INSTRUCTIONS AND FOLLOW UP APPOINTMENS. HOME OXYGEN USE EDUCATION AND INSTRUCTIONS REVEWIED IN DETAIL WITH PT. MARNIID-Naveen MÉNDEZ INSTRUCTIONS REVIEWED IN DETAIL WITH PT. PT VERBALIZES UNDERSTANDING. PT PLACED ON HOME OXYGEN TAKEN, FROM IN HOME MEDICAL, AT 8L WITH HIGH FLOW NASAL CANULA IN PLACE. VITALS TAKEN. PICC LINE DC'D PER PROTOCOL WITH OCCLUSIVE DRESSING IN PLACE. PT TRANSFERES SELF TO WHEELCHAIR. PT WHEELED FROM MED/SURG TO MEET OUT FRONT.
--- NOTE | 2020-06-07 09:23 | NUR ---
CHW IS UNABLE TO CONTACT PATIENT -PHONE NUMBER LISTED IN [employer]. CHW CALLED SPOKE WITH JILLIAN AT [facility]-PATIENT CONTACT NUMBER [phone]. NUMBER IS NOT WORKING, JILLIAN STATED TO EMAIL PATIENT [email or web address] PER JILLIAN THAT IS THE ONLY WAY TO CONTACT PATIENT BECAUSE OF NO CELL SERVICE AT HIS HOME. CHW EMAILED PATIENT AND REQUESTED AN URGENT CALL TO CONTACT CASE MANAGEMENT AT [facility] PROVIDED CONTACT NUMBER [phone].
== END 2020-06-06 11:43 | disposition home or self-care (01) | DRG 177 ==
LOC: ED 10:12 → CCU 13:37 → MS 06-04 16:45
PROVIDERS: ADMIT Internal Medicine
DX: U07.1 COVID-19 (principal); J12.89 Other viral pneumonia; J96.01 Acute respiratory failure with hypoxia; I10 Essential (primary) hypertension; G47.33 Obstructive sleep apnea (adult) (pediatric); F32.9 Major depressive disorder, single episode, unspecified; E11.9 Type 2 diabetes mellitus without complications; Z79.4 Long term (current) use of insulin
CPT/HCPCS: 36569; 71045; 80053; 81001; 82550; 82553; 83036; 83605; 83615; 83735; 83874; 84484; 85025; 85379; 87040; 93005; 93010; 94640; 94660; 94667; 94668; 94760; 94761; 94799; 96361; 96374; 97162; 99285-25; J1100; J1650; J1815; J7040; J7050; J7121

== ENCOUNTER 2020-06-26 11:14 | Inpatient (IN) | payer OTHER ==
[~2020-06-26] VITALS: Ht 175.3 cm; Wt 149.7 kg
--- OUTSIDE RECORDS SUMMARY | ~2020-06-26 | XMS | Encounter Summary ---
Demographics + + + | Address | [address] | | | [place] [address] | + + + | Home Phone | | + + + | Preferred Language | Unknown | + + + | Marital Status | | + + + | Anglican Affiliation | CHR | + + + | Race | White | + + + | Ethnic Group | Not or | + + + Author + + + | Author | [facility] | + + + | Organization | [facility] | + + + | Address | Unknown | + + + | Phone | Unavailable | + + + Support + + +---------+ + | Name | Relationship | Address | Phone | + + +---------+ + | Jacquie Garcia | ECON | Unknown | | + + +---------+ + Care Team Providers + +------+ + | Care Rn Hematology Name | Role | Phone | + +------+ + | Campos Benavides MD | PCP | | + +------+ + Reason for Visit + +--------+ + | Reason | Onset | Comments | | | Date | | + +--------+ + | Telephone follow-up | 03/27/ | 03/26/18 | | | 2017 | | + +--------+ + | Test Results | 03/27/ | | | | 2017 | | + +--------+ + Encounter Details +--------+ + + + + | Date | Type | Department | Care Team | Description | +--------+ + + + + | 03/27/ | Telephone | Endoscopic | Iain Esparza, | Telephone follow-up | | 2018 | | Procedural Unit at | [address] | (03/26/18); Test | | | | [facility] [address] | [facility] | Results | | | | [address] | [place], [place] | | | | | [place], | [address] | | | | | [address]th floor [place], | [phone] | | | | | [place] [address] | | | | | | [phone] | | | +--------+ + + + [...] on file | | + + + documented as of this encounter Miscellaneous Notes Telephone Encounter - Roberta Walsh RN - 04/04/2018 3:01 [address]Dr. Esparza s/w pt today.El ectronically signed by Roberta Walsh RN at 04/04/2018 3:01 PM PDTTelephone Encounter - Roberta Walsh RN - 04/04/2018 9:55 AM PDTPt had 03/26/18 EUS w/FNA, results are back. Will send pt request for path results to Dr. Esparza. elephone Encounter - Jonnie Martin - 04/04/2018 9:36 AM PDTPatient is call ing in regarding seeing if there is any test results that have come back from 03/26 appt. -Patient seeks a callback Telephone Encounter - Kelley Collins MA - 03/27/2018 11:35 AM PDTL/M with pt's for octaviano palmer to see how the patient is feeling post GI procedure from 03/26/18 Patient instructed to contact our office at [phone] if they had any questions or concerns. documented in this en counter Plan of Treatment Not on filedocumented as of this encounter Visit Diagnoses Not on filedocumented in this encounter"
--- OUTSIDE RECORDS SUMMARY | ~2020-06-26 | XMS | Encounter Summary ---
Demographics + + + | Address | [address] | | | [place] [address] | + + + | Home Phone | | + + + | Preferred Language | Unknown | + + + | Marital Status | | + + + | Restorationism Affiliation | CHR | + + + | Race | White | + + + | Ethnic Group | Not or | + + + Author + + + | Author | [facility] | + + + | Organization | [facility] | + + + | Address | Unknown | + + + | Phone | Unavailable | + + + Support + + +---------+ + | Name | Relationship | Address | Phone | + + +---------+ + | Jacquie Garcia | ECON | Unknown | | + + +---------+ + Care Team Providers + +------+ + | Care Hogshead Press Operator Name | Role | Phone | + +------+ + | Campos Benavides MD | PCP | | + +------+ + Encounter Details +--------+ + + + + | Date | Type | Department | Care Team | Description | +--------+ + + + + | 03/07/ | Document-Sc | UNKNOWN DEPARTMENT | Unknown . | | | 2018 | anned | [address] | | | | | | [address] | | | | | | [place], [place] | | | | | | [address] | | | +--------+ + + + [...]
--- OUTSIDE RECORDS SUMMARY | ~2020-06-26 | XMS | Encounter Summary ---
Demographics + + + | Address | [address] | | | [place] [address] | + + + | Home Phone [...] + + + | Author | [facility] | + + + | Organization | [facility] | + + + | Address | Unknown | + + + | Phone | Unavailable | + + + Support + + +---------+ + | Name | Relationship | Address | Phone | + + +---------+ + | Jacquie Garcia | ECON | Unknown | | + + +---------+ + Care Team Providers + +------+ + | Care Purchasing Director Name | Role | Phone | + +------+ + | Campos Benavides MD | PCP | | + +------+ + Reason for Visit + +--------+ + | Reason | Onset | Comments | | | Date | | + +--------+ + | Lab findings, | 04/04/ | | | teaching, guidance, | 2017 | | | and counseling | | | + +--------+ + Encounter Details +--------+ + + + + | Date | Type | Department | Care Team | Description | +--------+ + + + + | 04/04/ | Telephone | Digestive Health | Iain Esparza, | Lab findings, | | 2018 | | Center at [facility] [address] | [address] | teaching, guidance, | | | | [facility] | [address] | and counseling | | | | for Health and | [place], [place] | | | | | [facility], [facility] [address] | [address] | | | | | [place], [place] | [phone] | | | | | [address] | | | | | | [phone] | | | +--------+ + + + [...] this encounter Miscellaneous Notes Telephone Encounter - Iain Esparza MD - 04/04/2018 1:44 PM PDT Discussed the results lymph node biopsies with the patient which was reactive and most like ly related to fatty liver. Recommended to follow up with his referring physician. Clinical History The patient is a 53 year old male with abdominal lymphadenopathy. Final Pathologic Diagnosis Portacaval lymph node, endoscopic ultrasound-guided fine needle aspiration: - Findings consistent with reactive lymphoid hyperplasia, see Note - No monoclonal B cell population identified - No T cell antigen aberrancy; CD4:CD8 ratio is 2.9:1 Note: The combined cytologic and immunologic findings are most consistent with a reactive lymphoid hyperplasia. There is a mixed lymphoid cell population, with a bloody background. T he lymphoid cells are within the reactive morphologic spectrum. There are occasional backgro und neutrophils and plasma cells. No epithelial cells or Lxst-Wavnfofgp-trqg cells are ident ified. Because fine needle aspiration specimens are not always physician relations representative, if the patien t has persistent or recurrent lymphadenopathy considered clinically suspicious for malignanc y, an excisional biopsy is recommended. Case seen by: KAYLEE Reagan(ASCP) - Special Events Driver Ligia Solano MD - Cytopathology Fellow Balta Bone MD - Pathologist Leia Palomo MD - Hematopathologist My electronic signature indicates that I have personally reviewed all diagnostic slides, th e gross and/or microscopic portion of this report and formulated the final diagnosis. FLOW CYTOMETRIC ANALYSIS: The analysis was performed on a cell suspension prepared by rosanne ng the fresh needle biopsy tissue. The submitted specimen contained adequate cells for yelitza sis, with >90% viability. The Gamboa-stained cytospin of the Flow Lab specimen shows a mixed lymphoid population with a bloody background, with a predominance of small lymphocytes, as well as occasional macrophages. There are some medium-sized and large atypical lymphoid cell s; however, these cells are within the reactive morphologic spectrum. The analysis shows a phenotypically mixed lymphoid cell population with a predominance of m ature T cells (66%). The CD4:CD8 ratio is normal at 2.9:1 and there are no phenotypic abnorm alities of T cells. There are <1% NK cells. Mature B cells comprise 33% of total lymphoid ce lls and show polyclonal light chain expression. Subsets of B cells are CD5+ or CD10+; both t he CD5+ and CD10+ B cell subsets are analyzed separately and are clearly polyclonal. There i s no B cell monoclonality. The antibody panel utilized for the analysis is listed below. Antibodies Tested: CD2 CD3 CD4 CD5 CD7 CD8 CD10 CD19 CD20 CD23 CD25 CD34 CD45 CD56 CD103 sKappa sLambda Microscopic Description: Cellular smears show a dispersed population of predominantly smal l lymphocytes admixed with intermediate sized forms. No carcinoma cells are identified. Th e background contains lymphoid tangles and lymphoglandular bodies. at 1219 documented in this en counter Plan of Treatment Not on filedocumented as of this encounter Visit Diagnoses Not on filedocumented in this encounter"
--- OUTSIDE RECORDS SUMMARY | ~2020-06-26 | XMS | Clinical Summary ---
Demographics + + + | Address | [address] | | | [place] [address] | + + + | Home Phone | | + + + | Preferred Language | Unknown | + + + | Marital Status | | + + + | Hindu Affiliation | Unknown | + + + | Race | Unknown | + + + | Ethnic Group | Unknown | + + + Author + + + | Author | [facility] | | | and [place] | + + + | Organization | [facility] | | | and [place] | + + + | Address | Unknown | + + + | Phone | Unavailable | + + + Support + + +---------+ + | Name | Relationship | Address | Phone | + + +---------+ + | Bertha Vargas | ECON | Unknown | | + + +---------+ + Care Team Providers + +------+ + | Care Associate Media Director Name | Role | Phone | + +------+ + | Campos Benavides DO | PCP | | + +------+ + Allergies Not on File Medications Not on file Active Problems Not on file Social History + +-------+ +--------+------+ | Tobacco [...] on file | | + + + Last Filed Vital Signs Not on file Plan of Treatment + + +-------+ + | Health Maintenance | Due Date | Last | Comments | | | | Done | | + + +-------+ + | Vaccine: | | | | | Dtap/Tdap/Td (1 - | 2 | | | | Tdap) | | | | + + +-------+ + | Vaccine: Zoster (1 | | | | | of 2) | 3 | | | + + +-------+ + | Vaccine: Influenza | | | | | (#1) | 0 | | | + + +-------+ + Results Not on filefrom Last 3 Months Insurance + +--------+ +--------+-------+---------+--------+ | Payer | Benefi | Subscriber | Effect | Phone | Address | Type | | | t Plan | ID | miller | | | | | | / | | Dates | | | | | | Group | | | | | | + +--------+ +--------+-------+---------+--------+ | [employer] | [employer] | [id number] | | | | Indemn | | SERVICE | YELLOW | | 018-Pr | | | ity | | | HAWK | | esent | | | | + +--------+ +--------+-------+---------+--------+ + +--------+ +--------+ + + | Guarantor Name | Accoun | Relation to | Date | Phone | Billing Address | | | t Type | Patient | of | | | | | | | | | | + +--------+ +--------+ + + | Srinivasa Garcia | Person | Self | [birth year] | [address] | | | al/Fam | | 1965 | [phone] | [place] | | | ken | | | [address] ([place]) | [phone] | + +--------+ +--------+ + +"
--- OUTSIDE RECORDS SUMMARY | ~2020-06-26 | XMS | Encounter Summary ---
Demographics + + + | Address | [address] | | | [place] [address] | + + + | Home Phone | | + + + | Preferred Language | Unknown | + + + | Marital Status | | + + + | Jain Affiliation | Unknown | + + + | Race | Unknown | + + + | Ethnic Group | Unknown | + + + Author + + + | Author | [facility] | | | and [place] | + + + | Organization | [facility] | | | and [place] [...] Team Providers + +------+ + | Care Splicing Supervisor Name | Role | Phone | + +------+ + PCP | Unavailable | + +------+ + Encounter Details +--------+ + + + + | Date | Type | Department | Care Team | Description | +--------+ + + + + | 06/30/ | Hospital | [facility] | [place], | | | 2009 | Encounter | [facility] | [address] | | | | | CENTER [address] | [place] | | | | | [place] | [id number] | | | | | [address] | | | | | | [phone] | | | +--------+ + + + [...]
--- OUTSIDE RECORDS SUMMARY | ~2020-06-26 | XMS | Encounter Summary ---
Demographics + + + | Address | [address] | | | [place] [address] | + + + | Home Phone [...] Author | [facility] | + + + | Organization | [facility] | + + + | Address | Unknown | + + + | Phone | Unavailable | + + + Support + + +---------+ + | Name | Relationship | Address | Phone | + + +---------+ + | Jacquie Garcia | ECON | Unknown | | + + +---------+ + Care Team Providers + +------+ + | Care Resource Economist Name | Role | Phone | + [...] | (03/26/18); Test | | | | [facility] [address] | [facility] | Results | | | | [address] | [place], [place] | | | | | [place], | [address] | | | | | 4th floor [place], | [phone] | | | | | [place] [address] | | | | | | [phone] | | | +--------+ + + + [...] Patient instructed to contact our office at [phone] if they had any questions or concerns. documented in this en counter Plan of Treatment Not on filedocumented as of this encounter Visit Diagnoses Not on filedocumented in this encounter"
--- OUTSIDE RECORDS SUMMARY | ~2020-06-26 | XMS | Encounter Summary ---
Demographics + + + | Address | [address] | | | [place] [address] | + + + | Home Phone | | + + + | Preferred Language | Unknown | + + + | Marital Status | | + + + | Restorationist Affiliation | CHR | + + + | Race | White | + + + | Ethnic Group | Not or | + + + Author + + + | Author | [facility] | + + + | Organization | [facility] | + + + | Address | Unknown | + + + | Phone | Unavailable | + + + Support + + +---------+ + | Name | Relationship | Address | Phone | + + +---------+ + | Jacquie Garcia | ECON | Unknown | | + + +---------+ + Care Team Providers + +------+ + | Care Miller Head Wet Process Name | Role | Phone | + +------+ + | Campos Benavides MD | PCP | | + +------+ + Reason for Visit + +--------+ + | Reason | Onset | Comments | | | Date | | + +--------+ + | Pre-op evaluation | 03/25/ | | | | 2017 | | + +--------+ + Encounter Details +--------+ + + + + | Date | Type | Department | Care Team | Description | +--------+ + + + + | 05/21/ | Telephone-S | Preoperative | | Pre-op evaluation | | 2018 | cheduled | [facility] at | | | | | | [facility] | | | | | | Stay [address] | | | | [address] | | | | | | Mailcode: [id number] | | | | | | [facility] | | | | | | [address] [place], [place] | | | | | | [address] | | | | | | [phone] | | | +--------+ + + + [...] Removal | +--------+ + + + | Micha | 03/26/18; 1215; Shagufta Jones RN; | 03/26/185 by | 03/26/18 1604 by | | eral | Right; Antecubital; 20 g; None; | Shagufta Mcclelland RN | Lidia Cagle RN | | IV | No; Positive; [...] this encounter Miscellaneous Notes Telephone Encounter - Sara Elizondo RN - 03/25/2018 5:17 PM PDTLeft a message requestin g a return call without response. Darshana Jett with digestive health notified documented in this encounter Plan of Treatment Not on filedocumented as of this encounter Visit Diagnoses Not on filedocumented in this encounter"
--- OUTSIDE RECORDS SUMMARY | ~2020-06-26 | XMS | Encounter Summary ---
Demographics + + + | Address | [address] | | | [place] [address] | + + + | Home Phone | | + + + | Preferred Language | Unknown | + + + | Marital Status | | + + + | Methodist Affiliation | Unknown | + + + | Race | Unknown | + + + | Ethnic Group | Unknown | + + + Author + + + | Author | [facility] | | | and [place] | + + + | Organization | [facility] | | | and [place] | [...] Team Providers + +------+ + | Care Supervisor Color Paste Mixing Name | Role | Phone | + +------+ + PCP | Unavailable | + +------+ + Encounter Details +--------+ + + + + | Date | Type | Department | Care Team | Description | +--------+ + + + + | 06/30/ | Hospital | [facility] | [place], | | | 2009 | Encounter | [facility] | [address] | | | | | CENTER [address] | [place] | | | | | [place] | [id number] | | | | | [address] | | | | | | [phone] | | | +--------+ + + + [...]
--- OUTSIDE RECORDS SUMMARY | ~2020-06-26 | XMS | Encounter Summary ---
Demographics + + + | Address | [address] | | | [place] [address] | + + + | Home Phone | | + + + | Preferred Language | Unknown | + + + | Marital Status | | + + + | Alevism Affiliation | CHR | + + + [...] Team Providers + +------+ + | Care Jd Edwards Developer Name | Role | Phone | + [...] [address] | | | | | | [place], [place] | | | | | | [address] | | | +--------+ + + + [...]
--- OUTSIDE RECORDS SUMMARY | ~2020-06-26 | XMS | Encounter Summary ---
Demographics + + + | Address | [address] | | | [place] [address] | + + + | Home Phone | | + + + | Preferred Language | Unknown | + + + | Marital Status | | + + + | Jew Affiliation | CHR | + + + | Race | White | + + + | Ethnic Group | Not or | + + + Author + + + | Author | [facility] | + + + | Organization | [facility] | + + + | Address | Unknown | + + + | Phone | Unavailable | + + + Support + + +---------+ + | Name | Relationship | Address | Phone | + + +---------+ + | Jacquie Garcia | ECON | Unknown | | + + +---------+ + Care Team Providers + +------+ + | Care Service Person Name | Role | Phone | + [...] evaluation | | 2018 | cheduled | [facility] | | | | | | [facility] | | | | | | Stay [address] | | | | | | [address] | | | | | | Mailcode: [id number] | | | | | | [facility] | | | | | | [address] [place], [place] | | | | | | [address] | | | | | | [phone] | | | +--------+ + + + [...]
--- OUTSIDE RECORDS SUMMARY | ~2020-06-26 | XMS | Encounter Summary ---
Demographics + + + | Address | [address] | | | [place] [address] | + + + | Home Phone | | + + + | Preferred Language | Unknown | + + + | Marital Status | | + + + | Worship Affiliation | CHR | + + + | Race | White | + + + | Ethnic Group | Not or | + + + Author + + + | Author | [facility] | + + + | Organization | [facility] | + + + | Address | Unknown | + + + | Phone | Unavailable | + + + Support + + +---------+ + | Name | Relationship | Address | Phone | + + +---------+ + | Jacquie Garcia | ECON | Unknown | | + + +---------+ + Care Team Providers + +------+ + | Care Pile Operator Name | Role | Phone | + +------+ + | Campos Benavides MD | PCP | | + +------+ + Reason for Visit AUTH/CERT +--------+--------+ + + + + | Status | Reason | Specialty | Diagnoses / | Referred By | Referred To | | | | | Procedures | Contact | Contact | +--------+--------+ + + + + | | | | | | | +--------+--------+ + + + + Encounter Details +--------+ + + + + | Date | Type | Department | Care Team | Description | +--------+ + + + + | 03/26/ | Anesthesia | Endoscopic | Geo Acosta, | | | 2018 | Event | Procedural Unit at | [address] | | | | | [address] | | | | | [address] | [place], [place] | | | | | [place], | [address] | | | | | 4th floor [place], | [phone] | | | | | [place] [address] | | | | | | [phone] | Daisy Delvalle, | | | | | | KHAI [address] | | | | | | [address] | | | | | | [place], [place] | | | | | | [address] | | | | | | [phone] | | | | | | | | +--------+ + + + [...] | Meds | +------+ + + + | Name | Total | + + + | lidocaine 4% LTA | 5 mL | + + + | propofol INF | 1,702,575 mcg | + + + | propofol | 290 mg | + + + | PHENYLEPHrine | 600 mcg | + + + | sodium chloride 0.9% IV infusion | 400 mL | + + + + + | Name | + + | EtN2O % | + + | Insp N2O % | + + | O2 Flow Rate (Total Liters) | + + + + | No blood administrations on file. | + + +--------+ + + + | Type | Details | Placement | Removal | +--------+ + + + | Periph | 03/26/18; 1215; Shagufta Jones RN; | 03/26/18 1215 by | 03/26/18 1604 by | | rosalia | Right; Antecubital; 20 g; None; | [...] + + documented as of this encounter OR Notes Anesthesia Preprocedure Evaluation - Geo Acosta MD - 03/27/2018 6:13 AM PDTFormattcarlos morel of this note might be different from the original. Srinivasa Wooten [facility] [id number] No Known Allergies NPO:NPO Status: 2100 Last Vitals: Temp: 36.2 C (97.2 F) Pulse: 89 Resp: 16 BP: 110/49 SpO2: 96 % O2 Delivery Device: None (room air) Preg Status/LMP: There is no problem list on file for this patient. No past surgical history on file. Current Medication List Name Sig Last Dose ASPIRIN 81 MG TABLET,DELAYED RELEASE Take 81 mg by mouth once daily. 03/25/2018 ATORVASTATIN 20 MG TABLET Take 20 mg by mouth once daily. 03/26/2018 CHOLECALCIFEROL (VITAMIN D3) ORAL Take by mouth. 03/26/2018 FLUOXETINE 20 MG CAPSULE Take 20 mg by mouth once daily in the morning. 03/26/2018 HYDROCHLOROTHIAZIDE 12.5 MG CAPSULE Take 12.5 mg by mouth once daily. 03/26/2018 HYDROPHILIC TOPICAL OINTMENT Apply to affected area. 03/26/2018 LISINOPRIL 20 MG TABLET Take 20 mg by mouth once daily. 03/26/2018 METFORMIN ER 750 MG TABLET,EXTENDED RELEASE 24 HR Take 750 mg by mouth once daily. Administ er with evening meal. 03/26/2018 MODAFINIL 100 MG TABLET Take 100 mg by mouth once daily in the morning. 03/26/2018 PHENTERMINE 37.5 MG TABLET Take 37.5 mg by mouth once daily in the morning. Administer befo re breakfast. 03/26/2018 No results found for: RATE, ATRIALRATE, UT, QRS, QT, QTC, PAXIS, RAXIS, TAXIS, EKGDX Preoperative Adult Anesthesia Plan Last edited 03/26/18 1520 by Daisy Delvalle CRNA ROS: HPI: PMHX: Hypertension Hyperlipidemia Sleep apnea Chronic depression Adenomatous polyp of colon Deficiency of testosterone biosynthesis Lymphadenitis Obesity Type 2 diabetes mellitus Vertigo Lymphadenitis PSHX: Gallbladder Appendicitis Pulmonary: Pt. Has no asthma Dx of sleep apnea Uses BiPap/CPAP Cardiovascular: Functional Capacity: Low no CAD Sx no pacemaker/ICD GI/Hepatic: no GERD Renal: Within Defined Limits except as noted below Endo: Diabetes: type 2 oral hypoglycemics Endocrine Other no Hx Corticosteroid Use Neuro/Psych: no Psych Disorder ROS: HPI: PMHX: Hypertension Hyperlipidemia Sleep apnea Chronic depression Adenomatous polyp of colon Deficiency of testosterone biosynthesis Lymphadenitis Obesity Type 2 diabetes mellitus Vertigo Lymphadenitis PSHX: Gallbladder Appendicitis Pulmonary: Pt. Has no asthma Dx of sleep apnea Uses BiPap/CPAP Cardiovascular: Functional Capacity: Low no CAD Sx no pacemaker/ICD GI/Hepatic: no GERD Renal: Within Defined Limits except as noted below Endo: Diabetes: type 2 oral hypoglycemics Endocrine Other no Hx Corticosteroid Use Neuro/Psych: no Psych Disorder Physical Exam General: Appearance: Healthy HEENT: Normocephalic/Atraumatic Airway: Dentition: dentition is normal Garcia: No C-Spine ROM: Normal Neck Anatomy: Normal Jaw Protrusion: Normal (lower incisors go above upper incisors) Pulmonary: Respiratory: pulmonary exam normal Breath Sounds: breath sounds normal Cardiovascular: Rhythm: Regular Rate: Normal Abdomen: General: Normal Skin: Color: skin color normal Physical Exam General: Appearance: Healthy HEENT: Normocephalic/Atraumatic Airway: Dentition: dentition is normal Garcia: No C-Spine ROM: Normal Neck Anatomy: Normal Jaw Protrusion: Normal (lower incisors go above upper incisors) Pulmonary: Respiratory: pulmonary exam normal Breath Sounds: breath sounds normal Cardiovascular: Rhythm: Regular Rate: Normal Abdomen: General: Normal Skin: Color: skin color normal 1520 Revision History Date/Time User Provider Type Action > 03/26/18 1520 Daisy Delvalle CRNA Nurse Electric Arc Welder Addend 03/26/18 1353 Daisy Delvalle CRNA Nurse Electric Arc Welder Sign 03/26/18 0742 Daisy Delvalle CRNA Nurse Electric Arc Welder Share Anesthesia Plan Comments ASA ASA 2 NPO Status NPO Status: NPO by protocol Monitors/Lines to be used Standard Anesthetic Consideration Induction Anesthetic Technique Monitored Anesthesia Care; Obstetric Anesthesia Post-Op Pain Plan IV analgesics; Blood Products Informed Consent PARQ discussed with: patient, Procedures, Alternatives, Risks, and Questions discussed and Risk/benefit of anesthesia plan and blood product discussed Code status in OR Patients Code Status in OR: FULL 03/27 6:13 AM nesthesia Postproced ure Evaluation - Daisy Delvalle CRNA - 03/26/2018 3:19 PM PDTRoss Je Garcia [id number] No Known Allergies No past surgical history on file. Temp: 36.7 C (98.1 F) Pulse: 95 Resp: 18 BP: 102/44 SpO2: 94 % Evaluation Patient personally seen and evaluated for recovery from anesthesia care, ROS including Card s, Resp, Neuro, and GI w/o evidence of adverse effects, VS (BP, HR, RR, SpO2, and Temp) and hydration status are stable no PONV Pain controlled No Altered mental status Complications No adverse events documented in thi s encounter Miscellaneous Notes Addendum Note - Geo Acosta MD - 03/27/2018 6:14 AM PDT Addendum created 03/27/18613 by Geo Acosta MD Sign clinical note ddendum Note - Geo Blanco MD - 03/27/2018 6:13 AM PDT Addendum created 03/27/18612 by Geo Acosta MD Anesthesia Attestations filed [facility] PreOp Note - Daisy Delvalle CRNA - 03/26/2018 7:21 AM PDTROS: HPI: PMHX: Hypertension Hyperlipidemia Sleep apnea Chronic depression Adenomatous polyp of colon Deficiency of testosterone biosynthesis Lymphadenitis Obesity Type 2 diabetes mellitus Vertigo Lymphadenitis PSHX: Gallbladder Appendicitis Pulmonary: Pt. Has no asthma Dx of sleep apnea Uses BiPap/CPAP Cardiovascular: Functional Capacity: Low no CAD Sx no pacemaker/ICD GI/Hepatic: no GERD Renal: Within Defined Limits except as noted below Endo: Diabetes: type 2 oral hypoglycemics Endocrine Other no Hx Corticosteroid Use Neuro/Psych: no Psych Disorder ROS: HPI: PMHX: Hypertension Hyperlipidemia Sleep apnea Chronic depression Adenomatous polyp of colon Deficiency of testosterone biosynthesis Lymphadenitis Obesity Type 2 diabetes mellitus Vertigo Lymphadenitis PSHX: Gallbladder Appendicitis Pulmonary: Pt. Has no asthma Dx of sleep apnea Uses BiPap/CPAP Cardiovascular: Functional Capacity: Low no CAD Sx no pacemaker/ICD GI/Hepatic: no GERD Renal: Within Defined Limits except as noted below Endo: Diabetes: type 2 oral hypoglycemics Endocrine Other no Hx Corticosteroid Use Neuro/Psych: no Psych Disorder Physical Exam General: Appearance: Healthy HEENT: Normocephalic/Atraumatic Airway: Dentition: dentition is normal Garcia: No C-Spine ROM: Normal Neck Anatomy: Normal Jaw Protrusion: Normal (lower incisors go above upper incisors) Pulmonary: Respiratory: pulmonary exam normal Breath Sounds: breath sounds normal Cardiovascular: Rhythm: Regular Rate: Normal Abdomen: General: Normal Skin: Color: skin color normal Physical Exam General: Appearance: Healthy HEENT: Normocephalic/Atraumatic Airway: Dentition: dentition is normal Garcia: No C-Spine ROM: Normal Neck Anatomy: Normal Jaw Protrusion: Normal (lower incisors go above upper incisors) Pulmonary: Respiratory: pulmonary exam normal Breath Sounds: breath sounds normal Cardiovascular: Rhythm: Regular Rate: Normal Abdomen: General: Normal Skin: Color: skin color normal documented in thi s encounter Plan of Treatment Not on filedocumented as of this encounter Visit Diagnoses Not on filedocumented in this encounter Administered Medications + +--------+ +------+------+------+ | Medication Order | MAR | Action | Dose | Rate | Site | | | Action | Date | | | | + +--------+ +------+------+------+ | lidocaine (LTA) 4 % topical | Given | 03/26/20 | 5 mL | | | | solution INTRAPROCEDURE PRN, | | 18 1:57 | | | | | Starting 03/26/18 at 1357, | | PM PDT | | | | | Until 03/26/18 at 1506 | | | | | | + +--------+ +------+------+------+ +---+---+ | | | +---+---+ + +-------+ +---------+---+---+ | PHENYLEPHrine 100 mcg/mL IV | Given | 03/26/20 | 100 mcg | | | | syringe INTRAPROCEDURE PRN, | | 18 2:56 | | | | | Starting 03/26/18 at 1428, | | PM PDT | | | | | Until 03/26/18 at 1506 | | | | | | + +-------+ +---------+---+---+ +-------+ +---------+---+---+ | Given | 03/26/20 | 100 mcg | | | | | 18 2:46 | | | | | | PM PDT | | | | +-------+ +---------+---+---+ | Given | 03/26/20 | 100 mcg | | | | | 18 2:41 | | | | | | PM PDT | | | | +-------+ +---------+---+---+ +---+---+ | | | +---+---+ + + + + +--------+---+ | propofol (DIPRIVAN) injection | Rate/Dos | 03/26/20 | 200 | 193.2 | | | INTRAPROCEDURE CONTINUOUS PRN, | e Change | 18 2:25 | mcg/kg/m | mL/hr | | | Starting 03/26/18 at 1405, | | PM PDT | in | | | | Until 03/26/18 at 1506 | | | | | | + + + + +--------+---+ + + + +---------+---+ | Rate/Dose Change | 03/26/20 | 220 | 212.52 | | | | 18 2:20 | mcg/kg/m | mL/hr | | | | PM PDT | in | | | + + + +---------+---+ | Rate/Dose Change | 03/26/20 | 200 | 193.2 | | | | 18 2:09 | mcg/kg/m | mL/hr | | | | PM PDT | in | | | + + + +---------+---+ +---+---+ | | | +---+---+ + +-------+ +--------+---+---+ | propofol INTRAPROCEDURE PRN, | Given | 03/26/20 | 100 mg | | | | Starting 03/26/18 at 1405, | | 18 2:16 | | | | | Until 03/26/18 at 1506 | | PM PDT | | | | + +-------+ +--------+---+---+ +-------+ +--------+---+---+ | Given | 03/26/20 | 100 mg | | | | | 18 2:15 | | | | | | PM PDT | | | | +-------+ +--------+---+---+ | Given | 03/26/20 | 50 mg | | | | | 18 2:09 | | | | | | PM PDT | | | | +-------+ +--------+---+---+ +---+---+ | | | +---+---+ + +---------+ +---+---+---+ | sodium chloride 0.9% IV | New Bag | 03/26/20 | | | | | infusion 50 mL/hr, intravenous, | | 18 1:53 | | | | | CONTINUOUS, Starting Sun03/26/18 | | PM PDT | | | | | at 1200, Until Sun03/26/18 at | | | | | | | 2232 | | | | | | + +---------+ +---+---+---+ +---------+ + + +---+ | New Bag | 03/26/20 | 50 mL/hr | 50 mL/hr | | | | 18 12:15 | | | | | | PM PDT | | | | +---------+ + + +---+ +---+---+ | | | +---+---+ documented in this encounter"
--- OUTSIDE RECORDS SUMMARY | ~2020-06-26 | XMS | Encounter Summary ---
Demographics + + + | Address | [address] | | | [place] [address] | + + + | Home Phone | | + + + | Preferred Language | Unknown | + + + | Marital Status | | + + + | Gnosticism Affiliation | CHR | + + + | Race | White | + + + | Ethnic Group | Not or | + + + Author + + + | Author | [facility] | + + + | Organization | [facility] | + + + | Address | Unknown | + + + | Phone | Unavailable | + + + Support + + +---------+ + | Name | Relationship | Address | Phone | + + +---------+ + | Jacquie Garcia | ECON | Unknown | | + + +---------+ + Care Team Providers + +------+ + | Care Principal Quality Engineer Name | Role | Phone | + [...] | | Review | | | | [address] | | | | | | [address] | | | | | | [place], | | | | | | [address] floor [place], | | | | | | [place] [address] | | | | | | [phone] | | | +--------+ + + + [...] this encounter Miscellaneous Notes Telephone Encounter - Enestvedt, Brintha K, MD - 02/21/2018 2:07 PM PDTEUS With KS or BE Within 1 month phone PMC [address] and MRI are pushed over to [facility] with hepatomegaly and enlarged periportal LN Normal panc by imaging elephone Encounter - Taylor Mora - 02/21/2018 11:23 AM PDTFormatting of this note m ight be different from the original. Srinivasa Garcia [id number] REFERRAL FOR REVIEW: Reviewing Provider: Yessica Aden MD []Internal Referral [x] External Referral [] CORI Report Available Referring Diagnosis/Comments: I88.9 (ICD-10-CM) - 289.3 (ICD-9-CM) - Lymphadenitis [] emergent [x]urgent []routine []Consultation []Colonoscopy []Colonoscopy w/ EMR []Flexible Sigmoidoscopy []EGD (Upper Endoscopy) []Ileoscopy []Pouchoscopy []Endoscopy of Alexis Pouch [] Sm Bowel Enteroscopy [] Double Balloon Enteroscopy []Capsule Endoscopy: []Small Bowel []ESO [x]EUS []ERCP []24HR ph Monitor [] ON PPI (will be done OFF PPI unless checked) []48HR ph Ilene tor [] ON PPI (will be done OFF PPI unless checked) []Esophageal Manometry []Anorectal Manometry []PEG Tube Placement []PEG Tube REPLACEMENT []Other: Electronic Data: No data found for this vital: BMI There is no problem list on file for this patient. No current outpatient prescriptions on file. No current facility-administered medications for this visit. Allergies not on file No past medical history on file. No past surgical history on file. No results found for: WBC, HB, HCT, PLT, MCV, RDW, INRPT, FERRITIN, B12, FOLATE, IRON, RETI CCOUNT, NA, K, CL, BICARB, BUN, CR, GLU, CA, AST, ALT, AP, TBILI, TP, ALB, DIRBILI documented in this encounte r Plan of Treatment Not on filedocumented as of this encounter Visit Diagnoses Not on filedocumented in this encounter"
--- OUTSIDE RECORDS SUMMARY | ~2020-06-26 | XMS | Clinical Summary ---
Demographics + + + | Address | [address] | | | [place] [address] | + + + | Home Phone | | + + + | Preferred Language | Unknown | + + + | Marital Status | | + + + | Restorationism Affiliation | CHR | + + + | Race | White | + + + | Ethnic Group | Not or | + + + Author + + + | Author | [facility] | + + + | Organization | [facility] | + + + | Address | Unknown | + + + | Phone | Unavailable | + + + Support + + +---------+ + | Name | Relationship | Address | Phone | + + +---------+ + | Jacquie Garcia | ECON | Unknown | | + + +---------+ + Care Team Providers + +------+ + | Care Mailing Jogger Name | Role | Phone | + +------+ + | Campos Benavidse MD | PCP | | + +------+ + Source Comments [facility] is fully live on both [facility] and [facility] Allergies No Known Allergies Medications + + + +---------+------+------+-------+ | Medication | Sig | Dispensed | Refills | Star | End | Statu | | | | | | t | Date | s | | | | | | Date | | | + + + +---------+------+------+-------+ | aspirin EC 81 mg | Take 81 mg by mouth | | 0 | | | Activ | | oral tablet,delayed | once daily. | | | | | e | | release (DR/EC) | | | | | | | + + + +---------+------+------+-------+ | atorvastatin 20 mg | Take 20 mg by mouth | | 0 | | | Activ | | oral tablet | once daily. | | | | | e | + + + +---------+------+------+-------+ | CHOLECALCIFEROL | Take by mouth. | | 0 | | | Activ | | (VITAMIN D3) ORAL | | | | | | e | + + + +---------+------+------+-------+ | FLUoxetine 20 mg | Take 20 mg by mouth | | 0 | | | Activ | | oral capsule | once daily in the | | | | | e | | | morning. | | | | | | + + + +---------+------+------+-------+ | Hydrophilic | Apply to affected | | 0 | | | Activ | | topical ointment | area. | | | | | e | + + + +---------+------+------+-------+ | lisinopril 20 mg | Take 20 mg by mouth | | 0 | | | Activ | | oral tablet | once daily. | | | | | e | + + + +---------+------+------+-------+ | | Take 12.5 mg by | | 0 | | | Activ | | hydroCHLOROthiazide | mouth once daily. | | | | | e | | 12.5 mg oral capsule | | | | | | | + + + +---------+------+------+-------+ | metFORMIN SR 750 | Take 750 mg by mouth | | 0 | | | Activ | | mg oral tablet | once daily. | | | | | e | | extended release 24 | Administer with | | | | | | | hr | evening meal. | | | | | | + + + +---------+------+------+-------+ | modafinil 100 mg | Take 100 mg by mouth | | 0 | | | Activ | | oral tablet | once daily in the | | | | | e | | | morning. | | | | | | + + + +---------+------+------+-------+ | phentermine 37.5 | Take 37.5 mg by | | 0 | | | Activ | | mg oral tablet | mouth once daily in | | | | | e | | | the morning. | | | | | | | | Administer before | | | | | | | | breakfast. | | | | | | + + + +---------+------+------+-------+ Active Problems Not on file Encounters +--------+--------+ + + + | Date | Type | Specialty | Care Team | Description | +--------+--------+ + + + | 06/26/ | Intake | | | | | 2020 | | | | | +--------+--------+ + + + from Last 3 Months Social History + +-------+ +--------+------+ | Tobacco [...] + + + Last Filed Vital Signs + + + + + | Vital Sign | Reading | Time Taken | Comments | + + + + + | Blood Pressure | 110/49 | 03/26/2018 3:36 PM | | | | | PDT | | + + + + + | Pulse | 89 | 03/26/2018 3:36 PM | | | | | PDT | | + + + + + | Temperature | 36.2 C (97.2 F) | 03/26/2018 3:16 PM | | | | | PDT | | + + + + + | Respiratory Rate | 16 | 03/26/2018 3:36 PM | | | | | PDT | | + + + + + | Oxygen Saturation | 96% | 03/26/2018 3:40 PM | | | | | PDT | | + + + + + | Inhaled Oxygen | - | - | | | Concentration | | | | + + + + + | Weight | 161 kg (355 lb) | 03/26/2018 11:52 AM | | | | | PDT | | + + + + + | Height | 177.8 cm (5' 10") | 03/26/2018 11:52 AM | | | | | PDT | | + + + + + | Body Mass Index | 50.94 | 03/26/2018 11:52 AM | | | | | PDT | | + + + + + Plan of Treatment + + + + + | Health Maintenance | Due Date | Last | Comments | | | | Done | | + + + + + | Influenza (Flu) | | 11/16/19 | | | vaccination (#1) | 0 | 18, | | | | | 08/14/20 | | | | | 16, | | | | | 08/10/20 | | | | | 15, | | | | | Addition | | | | | al | | | | | history | | | | | exists | | + + + + + | Pneumococcal | Aged Out | | No longer eligible based on patient's age | | vaccination | | | to complete this topic | + + + + + Results Not on filefrom Last 3 Months Insurance + +--------+ +--------+-------+---------+--------+ | Payer | Benefi | Subscriber | Effect | Phone | Address | Type | | | t Plan | ID | miller | | | | | | / | | Dates | | | | | | Group | | | | | | + +--------+ +--------+-------+---------+--------+ | [facility] | | [id number] | | | | Agency | | SERVICE | | | [phone] | | | | | | HEALTH | | esent | | | | | | | | | | | | | | SERVIC | | | | | | | | E | | | | | | + [...] Person | Self | [birth year] | [address] | | | al/Fam | | 1965 | [phone] | [address] [place] | | | ken | | | [address] (Home) | [phone] | + +--------+ +--------+ + +
--- OUTSIDE RECORDS SUMMARY | ~2020-06-26 | XMS | Encounter Summary ---
Demographics + + + | Address | [address] | | | [place] [address] | + + + | Home Phone | | + + + | Preferred Language | Unknown | + + + | Marital Status | | + + + | Religion Affiliation | CHR | + + + | Race | White | + + + | Ethnic Group | Not or | + + + Author + + + | Author | [facility] | + + + | Organization | [facility] | + + + | Address | Unknown | + + + | Phone | Unavailable | + + + Support + + +---------+ + | Name | Relationship | Address | Phone | + + +---------+ + | Jacquie Garcia | ECON | Unknown | | + + +---------+ + Care Team Providers + +------+ + | Care Field Service Poultry Technician Name | Role | Phone | + [...] + + + + | 03/26/ | Hospital | [facility] [address] | Iain Esparza, | | | 2018 | Encounter | [address] | MD [address] | | | | | [facility] | [facility] | | | | | [address] | [place], [place] | | | | | ([facility]) | [address] | | | | | [place], [place] | [phone] | | | | | [address] | | | | | | [phone] | | | +--------+ + + + [...] + + documented as of this encounter Last Filed Vital Signs + + + [...] | | + + + + + documented in this encounter Discharge Instructions Instructions Jonny Winn RN - 03/26/2018Home Care Instructions after EGD (Upper Endosco py) with EUS (Endoscopic Ultrasound) You may resume your normal diet and medications unless told otherwise. Medications The medications you received for your procedure can cause you to be forgetful and drowsy an d will take the remainder of the day to wear off. DO NOT drink alcohol, drive, operate heavy machinery, sign legal documents, or make major d ecisions until tomorrow. Common After Effects Mild abdominal pain, bloating, and gas. Sore throat. You may treat it with throat lozenges and/or gargle with warm salt water. You may bruise at your IV site. If you have pain, redness, or swelling at your IV site a pply a warm compress. Complications Call your GI doctor if you have: Abnormal pain or any new unexplained symptoms. Shortness of breath, chest or neck pain. Vomiting blood or rectal bleeding. Fever above 101.5 Redness, pain, or swelling at your IV site that is not relieved with warm compress. For any questions related to your procedure, call Sunday- Sunday 8:00- 4:30 Call the endoscopy department toll free ext. [phone] or After business hours or on weekends and holiday Hospital Software Clerk toll free [phone] and have the GI doctor cnc applications engineer paged. The provider who performed your procedure is: Dr. Esparza Results of your EGD/EUS: Samples taken of a lymph node. Follow up Appointments with: Referring Provider Your primary care provider or referring provider will receive copies of the procedure repor t and all the pathology reports with recommendations for treatment if needed. You will receive the results in approximately 1 week. If you have not heard from us after 2 weeks please call for your results. documented in this encounter Medications at Time of Discharge + + + +---------+--------+ + | Medication | Sig | Dispensed | Refills | Start | End Date | | | | | | Date | | + + + +---------+--------+ + | aspirin EC 81 mg | Take 81 mg by mouth | | 0 | | | | oral tablet,delayed | once daily. | | | | | | release (DR/EC) | | | | | | + + + +---------+--------+ + | atorvastatin 20 mg | Take 20 mg by mouth | | 0 | | | | oral tablet | once daily. | | | | | + + + +---------+--------+ + | CHOLECALCIFEROL | Take by mouth. | | 0 | | | | (VITAMIN D3) ORAL | | | | | | + + + +---------+--------+ + | FLUoxetine 20 mg | Take 20 mg by mouth | | 0 | | | | oral capsule | once daily in the | | | | | | | morning. | | | | | + + + +---------+--------+ + | | Take 12.5 mg by | | 0 | | | | hydroCHLOROthiazide | mouth once daily. | | | | | | 12.5 mg oral capsule | | | | | | + + + +---------+--------+ + | Hydrophilic | Apply to affected | | 0 | | | | topical ointment | area. | | | | | + + + +---------+--------+ + | lisinopril 20 mg | Take 20 mg by mouth | | 0 | | | | oral tablet | once daily. | | | | | + + + +---------+--------+ + | metFORMIN SR 750 | Take 750 mg by mouth | | 0 | | | | mg oral tablet | once daily. | | | | | | extended release 24 | Administer with | | | | | | hr | evening meal. | | | | | + + + +---------+--------+ + | modafinil 100 mg | Take 100 mg by mouth | | 0 | | | | oral tablet | once daily in the | | | | | | | morning. | | | | | + + + +---------+--------+ + | phentermine 37.5 | Take 37.5 mg by | | 0 | | | | mg oral tablet | mouth once daily in | | | | | | | the morning. | | | | | | | Administer before | | | | | | | breakfast. | | | | | + + + +---------+--------+ + documented as of this encounter H&P Notes Iain Esparza MD - 03/26/2018 1:39 PM PDTFormatting of this note might be different fro m the original. PRE PROCEDURE NOTE: MR# [id number] Subjective: Srinivasa Garcia is a 53 y.o. male who presents today for EUS. Patient History Reviewed Medications reviewed Allergies: Allergies as of 02/25/2018 (Not on File) Pt NPO for 8 hrs. ROS: All others negative. Objective: Vital Signs: BP 105/48 | Pulse 83 | Temp 36.7 C (98.1 F) | RR 18 | Ht 1.778 m (5' 10") | Wt 161 kg (355 lb) | SpO2 98% | BMI 50.94 kg/(m^2) Neuro: Patient oriented X3. Mental status clear and intact Mallampati Score: II Neck negative Respiratory: Lungs clear to auscultation bilaterally with good air exchange Cardiovascular: S1S2 RRR Abdomen: soft, normal active bowel sounds, nontender, no masses, no organomegaly Impression Patient deemed appropriate candidate for planned procedure and sedation. Plan Proceed with EUS PARQ held and all questions addressed. Consent obtained. See procedure note 03/26/2018 documented in this en counter Plan of Treatment Not on filedocumented as of this encounter Procedures + +--------+ + + + | Procedure Name | Priori | Date/Time | Associated Diagnosis | Comments | | | ty | | | | + +--------+ + + + | FINE NEEDLE ASPIRATE | Routin | 03/26/2018 | | Results for this | | | e | 2:50 PM | | procedure are in the | | | | PDT | | results section. | + +--------+ + + + | EUS UPPER | Routin | 03/26/2018 | Lymphadenitis | Results for this | | | e | 1:41 PM | | procedure are in the | | | | PDT | | results section. | + +--------+ + + + | CAPILLARY BLOOD | Routin | 03/26/2018 | Lymphadenopathy | Results for this | | GLUCOSE (NO CHG), | e | 12:14 PM | | procedure are in the | | POC | | PDT | | results section. | + +--------+ + + + documented in this encounter Results FINE NEEDLE ASPIRATE (03/26/2018 2:50 PM PDT) + + + + + + | Component | Value | Ref Range | Performed | Pathologist | | | | | At | Signature | + + + + + + | Clinical | The patient is a 53 year | | [facility] | | | History | old male with abdominal | | DEPARTMENT | | | | lymphadenopathy. | | OF | | | | | | PATHOLOGY | | + + + + + + | Final | Portacaval lymph node, | | [facility] | Electronically | | Pathologic | endoscopic | | DEPARTMENT | signed by Francisco | | Diagnosis | ultrasound-guided fine | | OF | Merlin Bone MD on | | | needle aspiration:- | | PATHOLOGY | 03/29/2018 at | | | Findings consistent with | | | 12:19 PM | | | reactive lymphoid | | | | | | hyperplasia, see Note- | | | | | | No monoclonal B cell | | | | | | population identified- | | | | | | No T cell antigen | | | | | | aberrancy; CD4:CD8 ratio | | | | | | is 2.9:1Note: The | | | | | | combined cytologic and | | | | | | immunologic findings are | | | | | | most consistent with a | | | | | | reactive lymphoid | | | | | | hyperplasia. There is a | | | | | | mixed lymphoid cell | | | | | | population, with a | | | | | | bloody background. The | | | | | | lymphoid cells are | | | | | | within the reactive | | | | | | morphologic spectrum. | | | | | | There are occasional | | | | | | background neutrophils | | | | | | and plasma cells. No | | | | | | epithelial cells or | | | | | | Ekgl-Iquyxcadp-sehr | | | | | | cells are identified. | | | | | | Because fine needle | | | | | | aspiration specimens are | | | | | | not always | | | | | | client services representative, if the | | | | | | patient has persistent | | | | | | or recurrent | | | | | | lymphadenopathy | | | | | | considered clinically | | | | | | suspicious for | | | | | | malignancy, an | | | | | | excisional biopsy is | | | | | | recommended.Case seen | | | | | | by:Annabelle Maria, | | | | | | SCT(ASCP) - | | | | | | CytotechnologistElizabet | | | | | | h MD Xiomara - | | | | | | Cytopathology | | | | | | FellowSung-Mary Bone MD | | | | | | - PathologistRita M. | | | | | | MD Dewey - | | | | | | HematopathologistMy | | | | | | electronic signature | | | | | | indicates that I have | | | | | | personally reviewed all | | | | | | diagnostic slides, the | | | | | | gross and/or microscopic | | | | | | portion of this report | | | | | | and formulated the final | | | | | | diagnosis.FLOW | | | | | | CYTOMETRIC ANALYSIS: The | | | | | | analysis was performed | | | | | | on a cell suspension | | | | | | prepared by mincing the | | | | | | fresh needle biopsy | | | | | | tissue. The submitted | | | | | | specimen contained | | | | | | adequate cells for | | | | | | analysis, with >90% | | | | | | viability. The | | | | | | Gamboa-stained cytospin | | | | | | of the Flow Lab specimen | | | | | | shows a mixed lymphoid | | | | | | population with a bloody | | | | | | background, with a | | | | | | predominance of small | | | | | | lymphocytes, as well as | | | | | | occasional macrophages. | | | | | | There are some | | | | | | medium-sized and large | | | | | | atypical lymphoid cells; | | | | | | however, these cells | | | | | | are within the reactive | | | | | | morphologic spectrum. | | | | | | The analysis shows a | | | | | | phenotypically mixed | | | | | | lymphoid cell population | | | | | | with a predominance of | | | | | | mature T cells (66%). | | | | | | The CD4:CD8 ratio is | | | | | | normal at 2.9:1 and | | | | | | there are no phenotypic | | | | | | abnormalities of T | | | | | | cells. There are <1% NK | | | | | | cells. Mature B cells | | | | | | comprise 33% of total | | | | | | lymphoid cells and show | | | | | | polyclonal light chain | | | | | | expression. Subsets of B | | | | | | cells are CD5+ or | | | | | | CD10+; both the CD5+ and | | | | | | CD10+ B cell subsets | | | | | | are analyzed separately | | | | | | and are clearly | | | | | | polyclonal. There is no | | | | | | B cell monoclonality. | | | | | | The antibody panel | | | | | | utilized for the | | | | | | analysis is listed | | | | | | below.Antibodies Tested: | | | | | | CD2 CD3 CD4 CD5 CD7 CD8 | | | | | | CD10 CD19 CD20 CD23 | | | | | | CD25 CD34 CD45 CD56 | | | | | | CD103 sKappa sLambda | | | | | | Microscopic Description: | | | | | | Cellular smears show a | | | | | | dispersed population of | | | | | | predominantly small | | | | | | lymphocytes admixed with | | | | | | intermediate sized | | | | | | forms. No carcinoma | | | | | | cells are identified. | | | | | | The background contains | | | | | | lymphoid tangles and | | | | | | lymphoglandular bodies. | | | | + + + + + + | Team | | | [facility] | | | Pause/Attes | | | DEPARTMENT | | | tation | | | OF | | | | | | PATHOLOGY | | + + + + + + | Immediate | A: Evaluation episode | | [facility] | | | Impression | #1: Pass #1-6: lymphoid | | DEPARTMENT | | | | sampling Immediate | | OF | | | | Impression evaluation | | PATHOLOGY | | | | was performed by - | | | | | | (ED/SY). ATTESTATION : | | | | | | Dr. Balta Bone was | | | | | | physically present in | | | | | | the room to supervise | | | | | | and verify the immediate | | | | | | study work of the | | | | | | fellow. | | | | + + + + + + | Procedure | A. FNA by 6 passes | | [facility] | | | Details | yielded fluid for 0 | | DEPARTMENT | | | | SurePath slide, 4 | | OF | | | | air-dried and 1 fixed | | PATHOLOGY | | | | slide(s). A cell block | | | | | | was prepared and | | | | | | examined. | | | | + + + + + + | Ancillary | Analyte specific | | [facility] | | | Information | reagents are used in | | DEPARTMENT | | | | many laboratory tests | | OF | | | | necessary for standard | | PATHOLOGY | | | | medical care. This test | | | | | | was developed and its | | | | | | performance | | | | | | characteristics | | | | | | determined by [facility] | | | | | | laboratories. It has not | | | | | | been cleared or | | | | | | approved by the US Food | | | | | | and Drug Administration | | | | | | (FDA). FDA does not | | | | | | require this test to go | | | | | | through premarket FDA | | | | | | review. This test is | | | | | | used for clinical | | | | | | purposes. It should not | | | | | | be regarded as | | | | | | investigational or for | | | | | | research. This | | | | | | laboratory is certified | | | | | | under the Clinical | | | | | | Laboratory Improvement | | | | | | Amendments (CLIA) as | | | | | | qualified to perform | | | | | | high complexity clinical | | | | | | laboratory testing.) | | | | + + + + + + + + | Specimen | + + | Tissue - Structure | | of lymph node (body | | structure) | + + + + + + + | Performing | Address | City/State/Zipcode | Phone Number | | Organization | | | | + + + + + | [facility] | [address] | [place] [address] | | | PATHOLOGY | [address] | | | + + + + + EUS UPPER (03/26/2018 1:41 PM PDT) + + | Specimen | + + | | + + + +--- + | Narrative | Pe rformed At | + +--- + | MRN: | [facility] | | [id number] Date: 03/26/2018Patient Name: Srinivasa Fairchild #: | EN DOSCOPY | | [id number] of : 1965CSN: [id number] Type: | | | AmbulatoryRoom: GI 1Procedure: Upper EUSIndications: | | | Lymphadenopathy on CT scan, Lymphadenopathy on MRIProviders: | | | IAIN ESPARZA MD (Doctor), JONNY WINN RN | | | (Nurse)CHONG, Employee Relations Advisor | | | (Employee Relations Advisor)Referring MD: CAMPOS BENAVIDESRequesting | | | Provider: Medicines: Monitored [...] | | | The Olympus [id number] Endoscope #[id number] was introduced | | | through the mouth, and advanced to the second | | | part of duodenum. The Olympus [id number] | | | AL5 Linear Echoendoscope #[id number] was | | | introduced through the [...] transduodenal approach. A stylet was used. A project systems engineer | | | was present and performed [...] | lymph node was visualized in the avleino | | | hepatis region. Fine needle [...] Initiated On: 03/26/2018 1:41 | | | [facility] Letter to: CAMPOS BENAVIDES | | | - The findings and recommendations were discussed with | | | the patient and their family. | | |Attending Participation: | | | I personally performed the entire procedure. | | |Iain Esparza MD | | |IAIN ESPARZA MD | | |03/26/2018 4:34:19 PM | | |This report has been signed electronically. | | |Number of Addenda: 0 | | |Note Initiated On: 03/26/2018 1:41 PM | | | Letter to: | | | CAMPOS BENAVIDES | | + +--- + + +---------+ + + | Performing | Address | City/State/[facility] | Phone Number | | Organization | | | | + +---------+ + + | [facility] | | | | + +---------+ + + CAPILLARY BLOOD GLUCOSE (NO CHG), POC (03/26/2018 12:14 PM PDT) + +---------+ + + + | Component | Value | Ref Range | Performed | Pathologist | | | | | At | Signature | + +---------+ + + + | BLOOD | 125 (H) | 70 - 99 mg/dL | [facility] - | | | GLUCOSE, | | | [facility] | | | POC | | | [facility] | | | | | | OF CARE | | | | | | TESTS | | + +---------+ + + + + + | Specimen | + + | | + + + + + + + | Performing | Address | City/State/Zipcode | Phone Number | | Organization | | | | + + + + + | [facility] | [address] | [place], [place] | | | [facility] | [address] | [address] | | | TESTS | | | | + + + + + documented in this encounter Visit Diagnoses + + | Diagnosis | + + | Lymphadenopathy - Primary Enlargement of lymph nodes | + + | Lymphadenitis Lymphadenitis, unspecified, except mesenteric | + + documented in this encounter Administered Medications + +--------+---------+------+------+------+ | Medication Order | MAR | Action | Dose | Rate | Site | | | Action | Date | | | | + +--------+---------+------+------+------+ + +---+ | fentaNYL (SUBLIMAZE) injection | | | 50 mcg 50 mcg, intravenous, | | | POSTPROCEDURE PRN, 4 doses, | | | Starting 03/26/18 at 1426, | | | Until 03/26/18 at 2232, severe | | | pain while in Phase I Recovery | | + +---+ | | | + +---+ | lactated Ringers IV 500 mL, | | | intravenous, POSTPROCEDURE PRN, 1 | | | dose, Starting 03/26/18 at | | | 1426, Until 03/26/18 at 2232, | | | nausea/vomiting due to | | | dehydration | | + +---+ | | | + +---+ | lactated Ringers IV 500 mL, | | | intravenous, POSTPROCEDURE PRN, 1 | | | dose, Starting 03/26/18 at | | | 1426, Until 03/26/18 at 2232, | | | systolic blood pressure less than | | | 80 mmHg. 1st line | | + +---+ | | | + +---+ | lidocaine viscous (XYLOCAINE | | | VISCOUS) 2 % mucosal solution 15 | | | mL 15 mL, oral, INTRAPROCEDURE | | | PRN, Starting 03/26/18 at | | | 1146, Until 03/26/18 at 2232, | | | sore oropharynx | | + +---+ | | | + +---+ | naloxone (NARCAN) injection | | | intravenous, POSTPROCEDURE PRN, | | | Starting 03/26/18 at 1426, | | | Until 03/26/18 at 2232, | | | hypopnea | | + +---+ | | | + +---+ | ondansetron (ZOFRAN) injection | | | 4 mg 4 mg, intravenous, | | | POSTPROCEDURE PRN, 1 dose, | | | Starting 03/26/18 at 1426, | | | Until 03/26/18 at 2232, | | | nausea/vomiting, 1st line | | + +---+ | | | + +---+ | ondansetron (ZOFRAN) injection | | | 4 mg 4 mg, intravenous, | | | POSTPROCEDURE PRN, 1 dose, | | | Starting 03/26/18 at 1426, | | | Until 03/26/18 at 2232, | | | nausea/vomiting (greater than 6 | | | hours post-operatively) | | + +---+ | | | + +---+ | promethazine (PHENERGAN) | | | injection 6.25-12.5 mg 6.25-12.5 | | | mg, intravenous, POSTPROCEDURE | | | PRN, 1 dose, Starting 03/26/18 | | | at 1426, Until 03/26/18 at | | | 2232, nausea/vomiting, 2nd line | | + +---+ | | | + +---+ | simethicone (MYLICON) | | | suspension 3.333 mg 3.333 mg | | | (rounded from 3.3333 mg = 1 | | | drop), oral, INTRAPROCEDURE PRN, | | | Starting 03/26/18 at 1146, | | | Until 03/26/18 at 2232, gas | | | bubbles in endoscope | | + +---+ | | | + +---+ + +---------+ +---+---+---+ | sodium chloride 0.9% IV | New Bag | 03/26/20 | | | | | infusion 50 mL/hr, intravenous, | | 18 1:53 | | | | | CONTINUOUS, Starting 03/26/18 | | PM PDT | | | | | at 1200, Until 03/26/18 at | | | | | | | 2232 | | | | | | + +---------+ +---+---+---+ +---------+ + + +---+ | New Bag | 03/26/20 | 50 mL/hr | 50 mL/hr | | | | 18 12:15 | | | | | | PM PDT | | | | +---------+ + + +---+ +---+---+ | | | +---+---+ documented in this encounter
--- OUTSIDE RECORDS SUMMARY | ~2020-06-26 | XMS | Encounter Summary ---
Demographics + + + | Address | [address] | | | [place] [address] | + + + | Home Phone | | + + + | Preferred Language | Unknown | + + + | Marital Status | | + + + | Anabaptism Affiliation | CHR | + + + [...] Team Providers + +------+ + | Care Box Office Manager Name | Role | Phone | + +------+ + | Campos Benavides MD | PCP | | + +------+ + Encounter Details +--------+ + + + + | Date | Type | Department | Care Team | Description | +--------+ + + + + | 01/23/ | Document-Sc | Health Information | Other, Faculty | | | 2018 | anned | Services [address] | [phone] | | | | | [address] | | | | | | Mailcode: [id number] | | | | | | [facility] | | | | | | [place], [place] | | | | | | [address] | | | | | | [phone] | | | +--------+ + + + [...]
--- OUTSIDE RECORDS SUMMARY | ~2020-06-26 | XMS | Encounter Summary ---
Demographics + + + | Address | [address] | | | [place] [address] | + + + | Home Phone | | + + + | Preferred Language | Unknown | + + + | Marital Status | | + + + | Druze Affiliation | CHR | + + + [...] Team Providers + +------+ + | Care Safety Pin Assembling Machine Operator Name | Role | Phone | + +------+ + | Campos Benavides MD | PCP | | + +------+ + Encounter Details +--------+--------+ + + + | Date | Type | Department | Care Team | Description | +--------+--------+ + + + | 06/26/ | Intake | Transfer Center | | | | 2020 | | [address] | | | | | | [place], | | | | | | [place] [address] | | | +--------+--------+ + + + Social History + +-------+ [...]
--- OUTSIDE RECORDS SUMMARY | ~2020-06-26 | XMS | Encounter Summary ---
Demographics + + + | Address | [address] | | | [place] [address] | + + + | Home Phone | | + + + | Preferred Language | Unknown | + + + | Marital Status | | + + + | Baptist Affiliation | CHR | + + + | Race | White | + + + | Ethnic Group | Not or | + + + Author + + + | Author | [facility] | + + + | Organization | [facility] | + + + | Address | Unknown | + + + | Phone | Unavailable | + + + Support + + +---------+ + | Name | Relationship | Address | Phone | + + +---------+ + | Jacquie Garcia | ECON | Unknown | | + + +---------+ + Care Team Providers + +------+ + | Care Client Liaison Name | Role | Phone | + +------+ + | Campos Benavides MD | PCP | | + +------+ + Encounter Details +--------+ + + + + | Date | Type | Department | Care Team | Description | +--------+ + + + + | 01/23/ | Document-Sc | Health Information | Other, Faculty | | | 2018 | anned | Services [address] | [phone] | | | | | [address] | | | | | | Mailcode: OP17A | | | | | | [facility] | | | | | | [place], [place] | | | | | | [address] | | | | | | [phone] | | | +--------+ + + + [...]
--- OUTSIDE RECORDS SUMMARY | ~2020-06-26 | XMS | Encounter Summary ---
Demographics + + + | Address | [address] | | | [place] [address] | + + + | Home Phone [...] Team Providers + +------+ + | Care Ocean Export Account Manager Name | Role | Phone | + +------+ + | Campos Benavides MD | PCP | | + +------+ + Encounter Details +--------+ + + + + | Date | Type | Department | Care Team | Description | +--------+ + + + + | 02/19/ | Document-Sc | Health Information | Other, Faculty | | | 2018 | anned | Services [address] | [phone] | | | | | [address] | | | | | | Mailcode: OP17A | | | | | | [facility] | | | | | | [place], [place] | | | | | | [address] | | | | | | [phone] | | | +--------+ + + + [...]
--- OUTSIDE RECORDS SUMMARY | ~2020-06-26 | XMS | Encounter Summary ---
Demographics + + + | Address | [address] | | | [place] [address] | + + + | Home Phone | | + + + | Preferred Language | Unknown | + + + | Marital Status | | + + + | Bahai Affiliation | CHR | + + + | Race | White | + + + | Ethnic Group | Not or | + + + Author + + + | Author | [facility] | + + + | Organization | [facility] | + + + | Address | Unknown | + + + | Phone | Unavailable | + + + Support + + +---------+ + | Name | Relationship | Address | Phone | + + +---------+ + | Jacquie Garcia | ECON | Unknown | | + + +---------+ + Care Team Providers + +------+ + | Care Stemmer Machine Name | Role | Phone | [...] | | | | | [address] floor Center, | | | | | | [place] [address] | | | | | | [phone] | | | +--------+ + + + [...] be different from the original. Srinivasa Garcia [id number] REFERRAL FOR REVIEW: Reviewing Provider: Yessica Aden [...]
--- OUTSIDE RECORDS SUMMARY | ~2020-06-26 | XMS | Clinical Summary ---
Demographics + + + | Address | [address] [address] | | | [place] [address] | + + + | Home Phone | | + + + | Preferred Language | Unknown | + + + | Marital Status | | + + + | Taoist Affiliation | Unknown | + + + | Race | Unknown | + + + | Ethnic Group | Unknown | + + + Author + + + | Author | [facility] | | | and Janesana | + + + | Organization | [facility] | | | and Janesana [...] Team Providers + +------+ + | Care Internal Security Manager Name | Role | Phone | [...] | | | + +--------+ +--------+-------+---------+--------+ | [facility] | IHS | [phone] | | | | Indemn | | [...] Person | Self | [birth year] | | [address] | | | al/Fam | | 1965 | [phone] | [place] | | | ken | | | [address] ([place]) | [phone] | + +--------+ +--------+ + +"
--- OUTSIDE RECORDS SUMMARY | ~2020-06-26 | XMS | Encounter Summary ---
Demographics + + + | Address | [address] | | | [place] [address] | + + + | Home Phone | | + + + | Preferred Language | Unknown | + + + | Marital Status | | + + + | Temple Affiliation | CHR | + + + [...] Team Providers + +------+ + | Care Lower School Music Teacher Name | Role | Phone | + [...] 2018 | | Center at [facility] [address] | [address] | teaching, guidance, | | | | [facility] | [address] | and counseling | | | | for Health and | [place], [place] | | | | | [facility], [facility] [address] | [address] | | | | | [place], [place] | [phone] | | | | | [address] | | | | | | [phone] | | | +--------+ + + + [...] and plasma cells. No epithelial cells or Oncm-Eurpnowcr-ucib cells are ident ified. Because fine needle aspiration specimens are not always entry level sales representative, if the patien t has persistent or recurrent lymphadenopathy considered clinically suspicious for malignanc y, an excisional biopsy is recommended. Case seen by: KAYLEE Reagan(ASCP) - Front Desk Specialist Ligia Solano MD - Cytopathology Fellow Balta [...]
--- OUTSIDE RECORDS SUMMARY | ~2020-06-26 | XMS | Encounter Summary ---
Demographics + + + | Address | [address] | | | [place] [address] | + + + | Home Phone | | + + + | Preferred Language | Unknown | + + + | Marital Status | | + + + | Rastafari Affiliation | CHR | + + + | Race | White | + + + | Ethnic Group | Not or | + + + Author + + + | Author | [facility] | + + + | Organization | [facility] | + + + | Address | Unknown | + + + | Phone | Unavailable | + + + Support + + +---------+ + | Name | Relationship | Address | Phone | + + +---------+ + | Jacquie Garcia | ECON | Unknown | | + + +---------+ + Care Team Providers + +------+ + | Care Fagot Maker Name | Role | Phone | + +------+ + | Campos Benavides MD | PCP | | + +------+ + Encounter Details +--------+ + + + + | Date | Type | Department | Care Team | Description | +--------+ + + + + | 02/19/ | Document-Sc | Health Information | Other, Faculty | | | 2018 | anned | Services [address] | [phone] | | | | | [address] | | | | | | Mailcode: OP17A | | | | | | [facility] | | | | | | [place], [place] | | | | | | [address] | | | | | | [phone] | | | +--------+ + + + [...]
--- OUTSIDE RECORDS SUMMARY | ~2020-06-26 | XMS | Encounter Summary ---
Demographics + + + | Address | [address] | | | [place] [address] | + + + | Home Phone | | + + + | Preferred Language | Unknown | + + + | Marital Status | | + + + | Jain Affiliation | CHR | + + + | Race | White | + + + | Ethnic Group | Not or | + + + Author + + + | Author | [facility] | + + + | Organization | [facility] | + + + | Address | Unknown | + + + | Phone | Unavailable | + + + Support + + +---------+ + | Name | Relationship | Address | Phone | + + +---------+ + | Jacquie Garcia | ECON | Unknown | | + + +---------+ + Care Team Providers + +------+ + | Care Hatch Boss Name | Role | Phone | + +------+ + | Karime Benavides MD | PCP | | + +------+ + Encounter Details +--------+ + + + + | Date | Type | Department | Care Team | Description | +--------+ + + + + | 02/25/ | Outside | [facility] | Karime Benavides, | | | 2018 | Referral | [facility] [address] | MD Rossi | | | | Order | [facility] for | [facility] | | | | | Health and Healing, | [address] | | | | | [address] | [place], [place] | | | | | [facility] [place] | [address] | | | | | [address] | | | | | | [phone] | | | +--------+ + + + [...] on filedocumented as of this encounter Results KATYA AGUILERA (03/26/2018 1:41 PM PDT) + + | Specimen | + + | | + + + +--- + | Narrative | Pe rformed At | + +--- + | MRN: | [facility] | | [id number] Date: 03/26/2018Patient Name: Srinivasa Fairchild #: | EN DOSCOPY | | [id number] of : 1965CSN: [id number] Type: | | | AmbulatoryRoom: GI 1Procedure: Upper EUSIndications: | | | Lymphadenopathy on CT scan, Lymphadenopathy on MRIProviders: | | | KAREN ESPARZA MD (Doctor), JONNY WINN, RN | | | (Nurse), CHONG FLOOD, Currency Machine Operator | | | (Currency Machine Operator)Referring MD: KARIME BENAVIDESRequesting | | | Provider: [...] | | | The Olympus [id number] Endoscope #[id number] was introduced | | | through the mouth, and advanced to the second | | | part of duodenum. The Olympus [id number] | | | AL5 Linear Echoendoscope #[id number] was | | | introduced through the [...] transduodenal approach. A stylet was used. A locomotive firer | | | was present and performed [...] Initiated On: 03/26/2018 1:41 | | | [facility] Letter to: KARMIE BENAVIDES | | | - The findings [...] Initiated On: 03/26/2018 1:41 PM | | |CC Letter to: | | | KARIME JuniRafael BENAVIDES | | + +--- + + [...]
--- OUTSIDE RECORDS SUMMARY | ~2020-06-26 | XMS | Encounter Summary ---
Demographics + + + | Address | [address] | | | [place] [address] | + + + | Home Phone | | + + + | Preferred Language | Unknown | + + + | Marital Status | | + + + | Orthodox Affiliation | CHR | + + + | Race | White | + + + | Ethnic Group | Not or | + + + Author + + + | Author | [facility] | + + + | Organization | [facility] | + + + | Address | Unknown | + + + | Phone | Unavailable | + + + Support + + +---------+ + | Name | Relationship | Address | Phone | + + +---------+ + | Jacquie Garcia | ECON | Unknown | | + + +---------+ + Care Team Providers + +------+ + | Care Program Assistant Name | Role | Phone | + [...] | | | [address] | [place], [place] | | | | | [address], | [address] | | | | | 4th floor [place], | [phone] | | | | | [place] [address] | | | | | | [phone] | Daisy Delvalle, | | | | | | KHAI [address] | | | | | | [address] | | | | | | [place], [place] | | | | | | [address] | | | | | | [phone] | | | | | | | [...] be different from the original. Srinivasa Wooten [facility] [id number] No Known Allergies NPO:NPO Status: 2100 Last [...] 03/26/2018 No results found for: RATE, ATRIALRATE, MS, QRS, QT, QTC, PAXIS, RAXIS, TAXIS, EKGDX [...] > 03/26/18 1520 Daisy Delvalle CRNA Nurse Machine Skiver Addend 03/26/18 1353 Daisy Delvalle CRNA Nurse Machine Skiver Sign 03/26/18 0743 Daisy Delvalle CRNA Nurse Machine Skiver Share Anesthesia Plan Comments ASA ASA 2 [...] - 03/26/2018 3:19 PM PDTRoss Je Garcia [id number] No Known Allergies No past surgical history [...]
--- OUTSIDE RECORDS SUMMARY | ~2020-06-26 | XMS | Encounter Summary ---
Demographics + + + | Address | [address] | | | [place] [address] | + + + | Home Phone | | + + + | Preferred Language | Unknown | + + + | Marital Status | | + + + | Confucianist Affiliation | CHR | + + + [...] Team Providers + +------+ + | Care Engineer Chief Name | Role | Phone | + [...] [address] Ren[address] | | | | | [facility] | [facility] | | | | | [address] | [place], [place] | | | | | ([facility]) | [address] | | | | | [place], [place] | [phone] | | | | | [address] | | | | | | [phone] | | | +--------+ + + + [...] hours or on weekends and holiday Hospital Director Of Security toll free [phone]. [phone] and have the GI doctor sound effects person paged. The provider who performed your procedure [...] m the original. PRE PROCEDURE NOTE: MR# [id number] Subjective: Srinivasa Garcia is a 53 y.o. [...] or | | | | | | Njfa-Xdsojgqzc-iasd | | | | | | cells are identified. | | | | | | Because fine needle | | | | | | aspiration specimens are | | | | | | not always | | | | | | commercial representative, if the | | | | [...] | + + + + + | [facility] | [address] | [place] [address] | | | PATHOLOGY | [address] | | | + + + + + EUS UPPER (03/26/2018 1:41 PM PDT) + + | Specimen | + + | | + + + +--- + | Narrative | Pe rformed At | + +--- + | MRN: | [facility] | | [id number] Date: 03/26/2018Patient Name: Srinivasa Fairchild #: | EN DOSCOPY | | [id number] of : 1965CSN: [id number] Type: | | | AmbulatoryRoom: GI 1Procedure: Upper EUSIndications: | | | Lymphadenopathy on CT scan, Lymphadenopathy on MRIProviders: | | | IAIN ESPARZA MD (Doctor), JONNY WINN RN | | | (Nurse)CHONG, Crematorium Operator | | | (Crematorium Operator)Referring MD: CAMPOS BENAVIDESRequesting | | | [...] | | | The Olympus GIF-[id number] Endoscope #[id number] was introduced | | | through the mouth, and advanced to the second | | | part of duodenum. The Olympus [id number] | | | AL5 Linear Echoendoscope #[id number] was | | | introduced through the [...] transduodenal approach. A stylet was used. A supervisor fertilizer processing | | | was present and performed [...] Initiated On: 03/26/2018 1:41 | | | [facility] Letter to: CAMPOS BENAVIDES | | [...] + + | Performing | Address | City/State[facility] | Phone Number | | [...] + + + | JOSR GOFF | [address] | [place], [place] | | | [facility] | [address] | [address] | | | TESTS | | | [...]
--- OUTSIDE RECORDS SUMMARY | ~2020-06-26 | XMS | Clinical Summary ---
Demographics + + + | Address | [address] | | | [place] [address] | + + + | Home Phone | | + + + | Preferred Language | Unknown | + + + | Marital Status | | + + + | Anabaptism Affiliation | CHR | + + + | Race | White | + + + | Ethnic Group | Not or | + + + Author + + + | Author | [facility] | + + + | Organization | [facility] | + + + | Address | Unknown | + + + | Phone | Unavailable | + + + Support + + +---------+ + | Name | Relationship | Address | Phone | + + +---------+ + | Jacquie Garcia | ECON | Unknown | | + + +---------+ + Care Team Providers + +------+ + | Care Registered Respiratory Technician Name | Role | Phone | + +------+ + | Campos Benavides MD | PCP | | + +------+ + Source Comments JOSR is fully live on both [facility] and [facility] InPatient.[facility] Allergies No Known Allergies Medications + [...] 11/16/19 | | | vaccination (#1) | 9 | 18, | | | | | [...] | | | + +--------+ +--------+-------+---------+--------+ | [facility] | | [id number] | | | | Agency | | [...] Person | Self | [birth year] | | [address] | | | al/Fam | | 1965 | [phone] | [place] | | | ken | | | 9 (Home) | [phone] | + +--------+ +--------+ + +
--- OUTSIDE RECORDS SUMMARY | ~2020-06-26 | XMS | Encounter Summary ---
Demographics + + + | Address | [address] | | | [place] [address] | + + + | Home Phone | | + + + | Preferred Language | Unknown | + + + | Marital Status | | + + + | Jainism Affiliation | CHR | + + + | Race | White | + + + | Ethnic Group | Not or | + + + Author + + + | Author | [facility] | + + + | Organization | [facility] | + + + | Address | Unknown | + + + | Phone | Unavailable | + + + Support + + +---------+ + | Name | Relationship | Address | Phone | + + +---------+ + | Jacquie Garcia | ECON | Unknown | | + + +---------+ + Care Team Providers + +------+ + | Care Parking Garage Manager Name | Role | Phone | + +------+ + | Karime Benavides MD | PCP | | + +------+ + Encounter Details +--------+ + + + + | Date | Type | Department | Care Team | Description | +--------+ + + + + | 02/25/ | Outside | [facility] | Karime Benavides, | | | 2018 | Referral | [facility] [address] | MD Rossi | | | | Order | [facility] for | [facility] | | | | | Health and Healing, | [address] | | | | | [address] | [place], [place] | | | | | [facility] [place] | [id number] | | | | | [address] | | | | | | [phone] | | | +--------+ + + + [...] + | MRN: | [facility] | | [id number] Date: 03/26/2018Patient Name: Srinivasa Fairchild #: | EN DOSCOPY | | [id number] of : 1965CSN: [id number] Type: | | | AmbulatoryRoom: GI 1Procedure: Upper EUSIndications: | | | Lymphadenopathy on CT scan, Lymphadenopathy on MRIProviders: | | | KAREN ESPARZA MD (Doctor), JONNY WINN, RN | | | (Nurse), CHONG FLOOD, Holder Pile Driving | | | (Holder Pile Driving)Referring MD: KARIME BENAVIDESRequesting | | | Provider: [...] | | | The Olympus GIF-H190 Endoscope #[id number] was introduced | | | through the mouth, and advanced to the second | | | part of duodenum. The Olympus [id number] | | | AL5 Linear Echoendoscope #[id number] was | | | introduced through the [...] transduodenal approach. A stylet was used. A training specialist | | | was present and performed [...] Initiated On: 03/26/2018 1:41 | | | [facility] Letter to: KARIME BENAVIDES | | | [...]
[~2020-06-26 11:14] MED LIST changes: +DECADRON6 MG PO; +GABAPENTIN100 MG PO; +HYDROCHLOROTHIA25 MG PO; +PREDNISONE20 MG PO; +THERA-D50 MCG PO; +THEREMS-M1 EACH PO; +TRULICITY0.75 MG/0. SUB-Q; +TYLENOL325 MG PO
--- OUTSIDE RECORDS SUMMARY | 2020-06-26 11:16 | XMS ---
PreManage Notification: RADHA CHOUDHURY Security Manual Writer Events No recent Security Events currently on file CRITERIA MET - PDMP - [facility] - 2 Visits in 30 Days CARE PROVIDERS There are no care providers on record at this time. Evonne has no Care Guidelines for this patient. Care History Medical/Surgical 06/01/2020 [facility] - PATIENT IS [facility] ELIGIBLE, \T\middot;\T\nbsp; PLEASE REFER PATIENT TO [facility] FOR NON EMERGENT MEDICAL NEEDS. \T\middot;\T\nbsp; [facility] CAN SEE PATIENTS SAME DAY FOR APTS IF PATIENT CALLS FIRST THING IN THE MORNING. E.D. VISIT COUNT (12 MO.) 2 [facility]. TOTAL 2 NOTE: Visits indicate total known visits. ED/C VISIT TRACKING (12 MO.) 06/26/2020 11:14 [facility] TYPE: Emergency COMPLAINT: - SOB 05/31/2020 10:12 [facility] TYPE: Emergency COMPLAINT: - SOB INPATIENT VISIT TRACKING (12 MO.) 05/31/2020 13:37 [facility] TYPE: Medical Surgical COMPLAINT: - COVID/PNEUMONIA DIAGNOSES: - Other viral pneumonia - Obstructive sleep apnea (adult) (pediatric) - Major depressive disorder, single episode, unspecified - Major depressive disorder, single episode, unspecified - care home (current) use of insulin - Essential (primary) hypertension - Acute respiratory failure with hypoxia - Obstructive sleep apnea (adult) (pediatric) - Type 2 diabetes mellitus without complications - care home (current) use of insulin - Acute respiratory failure with hypoxia - COVID-19 - Other viral pneumonia - Type 2 diabetes mellitus without complications - Essential (primary) hypertension [email or web address]
--- NOTE | 2020-06-26 19:21 | EKG ---
[facility] [address] [facility] [place], [place] [address] Signed Sinus tachycardia Low voltage QRS Inferior infarct (cited on or before 31-MAY-2020) Abnormal ECG When compared with ECG of 31-MAY-2020 10:48, No significant change was found Confirmed by RICHARD KAUFFMAN MD ([id number]) on 06/26/2020 7:21:05 PM Electronically Signed By: RICHARD KAUFFMAN MD 06/26/201920 PATIENT NAME: CHOUDHURYRADHA MARQUEZ Electrocardiogram DATE OF : 61 PHYSICIAN: RICHARD KAUFFMAN MD REPORT #: [id number] REPORT IS CONFIDENTIAL AND NOT TO BE RELEASED WITHOUT AUTHORIZATION
--- NOTE | 2020-06-26 19:42 | NUR ---
PT REPORT RECIEVED. CARE OF PT ASSUMED AT THIS TIME.
--- NOTE | 2020-06-26 20:00 | NUR ---
IN ROOM FOR MEDICATION ADMINISTRATION AND ASSESSMENT. PT RESTING IN BED WATCHING TELEVISION. PT DENIES PAIN, SHORTNESS OF BREATH, NAUSEA, OR ANY OTHER DISCOMFORT AT THIS TIME. PTS HEART RATE IN THE 110'S. TEMP OF 99.4. BREATHING EVEN AND UNLABORED AT REST. RESPIRATORY RATE IN THE MID 20S- 30 WITH ANY ACTIVITY OR MOVEMENT. DISCUSSED PLAN OF CARE FOR EVENING. ALL QUESTIONS ANSWERED. PT DENIES FURTHER NEEDS AT THIS TIME.
--- NOTE | 2020-06-26 21:02 | NUR ---
INCYTE COVID TEST COLLECTED PER DR ORDER BY THIS RT. COVID TEST COLLETED BY SWAB, BOTH NARES W/O ISSUE. PT TOLERATED WELL.
--- NOTE | 2020-06-26 21:49 | NUR ---
IN ROOM WITH RT. PER PT REQUEST PT PLACED ON CPAP AT THIS TIME. SATURATIONS AT 92 PERCENT AT THIS TIME. PT VOIDED 1200 MLS OF DILUTE URINE TO URINAL. ABX COMPLETED AT THIS TIME. NO FURTHER NEEDS AT THIS TIME.
--- NOTE | 2020-06-26 23:00 | NUR ---
PT RESTING WITH EYES CLOSED, BREATHING EVEN AND UNLABORED. PT REMAINS ON CPAP AT THIS TIME. NO ASSESSED NEEDS AT THIS TIME. WILL CONTINUE TO MONITOR.
--- NOTE | 2020-06-27 00:26 | NUR ---
IN ROOM FOR ASSESSMENT. PT SITTING UP IN BED ON CPAP. WHEN AMBULATING TO BATHROOM HEART RATE IS 100-110. 90'S AT REST. SPO2 96 PERCENT ON CPAP. DENIES PAIN, SHORTNESS OF BREATH, OR ANY OTHER DISCOMFORT. CALL LIGHT WITHIN REACH. NO FURTHER NEEDS AT THIS TIME.
--- NOTE | 2020-06-27 02:00 | NUR ---
PT SLEEPING ON CPAP. BREATHING EVEN AND UNLABORED. RR=20. CALL LIGHT WITHIN REACH. NO FURTHER NEEDS AT THIS TIME.
--- NOTE | 2020-06-27 03:04 | NUR ---
RT IN ROOM FOR ASSESSMENT. PT REAMINS ON CPAP. DENIES PAIN, SHORTNESS OF BREATH, OR DISCOMFORT. CALL LIGHT WITHIN REACH. NO FURTHER NEEDS AT THIS TIME.
--- NOTE | 2020-06-27 04:42 | NUR ---
IN ROOM TO COMPLETE ASSESSMENT AT THIS TIME. PT AWAKE IN BED, ON PHONE, WITH CPAP IN PLACE. NO COMPLAINTS OF PAIN OR SHORTNESS OF BREATH. BREATHING EVEN AND UNLABORED. PT HAS BEEN AMUBLATING INDEPENDENTLY TO THE BATHROOM THROUGHOUT NIGHT WITHOUT ASSOCIATED TACHYPENIA OR SHORTNESS OF BREATH. CALL LIGHT WITHIN REACH. NO FURTHER NEEDS AT THIS TIME.
--- NOTE | 2020-06-27 06:28 | NUR ---
IN ROOM FOR LAB DRAW. WELL TOLERATED BY PATIENT.
--- NOTE | 2020-06-27 07:30 | NUR ---
PATIENT SHIFT REPORT RECIEVED FROM TACK PICKER RN. PATIENT RESTING IN BED ON CPAP AT THIS TIME. PATIENT CALLS APPROPRIATELY. NO OTHER NEEDS. WILL CONTINUE TO CLOSELY MONITOR.
--- NOTE | 2020-06-27 09:30 | NUR ---
PATIENTS SHIFT ASSESSMENT COMPLETED. THIS RN IN A PAPR AND UNABLE TO LISTEN TO HEART TONES, BOWEL TONES, AND BREATH SOUNDS. PATIENT HAS NO EDEMA NOTED. PATIENT DENIES SOB. PATIENT ON 5L NC AT THIS TIME. BREAKFAST AT THE BEDSIDE. MEDICATIONS ADMINISTERED. VITALS STABLE. PATIENT DENIES ANY OTHER NEEDS AT THIS TIME. WILL CONTINUE TO CLOSELY MONITOR.
--- NOTE | 2020-06-27 11:00 | NUR ---
PATIENTS ABX COMPLETED. PATIENT LUNCH ORDERED. PATIENT DENEIS ANY OTHER NEEDS AT THSI TIME. WILL CONTINUE TO CLOSELY MONITOR.
--- NOTE | 2020-06-27 13:00 | NUR ---
PATIENT SITTING UP AT THE BEDSIDE. ASSESSMENT COMPLETED AND REMAINS UNCHANGED FROM PRIOR ASSESSMENT. DECREASED OXYGEN BACK TO 4L. EDUCATED TO WEAR OXYGEN CANNULA INTO THE BATHROOM WHEN HE GETS UP. ALSO EDUCATED TO USE THE URINAL SO STAFF CAN MEASURE URINE OUTPUT. PATIENT AGREEABLE TO PLAN OF CARE. PATIENT DENEIS ANY OTHER NEEDS AT THIS TIME. WILL CONTINUE TO CLOSELY MONITOR.
--- NOTE | 2020-06-27 15:45 | NUR ---
PATIENT ORDERED OUT PIZZA. PATIENT UP TO THE DOOR TO GRAB IT. PATIENT DENEIS ANY OTHER NEEDS AT THIS TIME. WILL CONTINUE TO CLOSELY MONITOR.
--- NOTE | 2020-06-27 17:45 | NUR ---
PATIENT RESTING IN BED AND DENEIS ANY OTHER NEEDS AT THIS TIME. PATIENT REMAINS ON TELE 6. NO OTHER NEEDS AT THIS TIME. WILL CONTINUE TO CLOSELY MONITOR.
--- NOTE | 2020-06-27 18:58 | NUR ---
THIS RN IN TO SEE PATIENT. PATIENT RESTING IN BED AT THIS TIME. PATIENTS BLOOD SUGAR DONE. VITALS DONE. EDUCATED PATIENT TO CONTINUE TO USE IS AND AQAPELLA AND TO ONLY USE INHALER Q4 HOURS WHEN NEEDED. NO OTHER NEEDS AT THIS TIME. WILL CONTINUE TO CLOSELY MONITOR.
--- NOTE | 2020-06-27 19:30 | NUR ---
REPORT RECIEVED FROM CCU RN. CARE OF PATIENT ASSUMED AT THIS TIME.
--- NOTE | 2020-06-27 20:20 | NUR ---
In room for medication administration and to complete patient assessment. Discussed discharge planning, and patients plan for follow up care. Medications administered, plan of care for evening established. No further needs at this time.
--- NOTE | 2020-06-27 21:24 | NUR ---
IN ROOM WITH PT TO CHECK BLOOD GLUCOSE AND GIVE INSLUIN. PT REMAINS OF 4 L NC AT THIS TIME. PT STATES HE IS NOT YET TIRED AND WILL WAIT TO PT ON CPAP WHEN HE GOES TO SLEEP. CALL LIGHT WITHIN REACH. NO FURTHER NEEDS AT THIS TIME.
--- NOTE | 2020-06-27 23:11 | NUR ---
IN ROOM TO ASSESS PATIENT. RESTING ON CPAP WITH EYES CLOSED, BREATHING EVEN AND UNLABORED. PT AWAKENED EASILY FOR ASSESSMENT. DENIES PAIN OR SHORTNESS OF BREATH. CALL LIGHT WITHIN REACH. NO FURTHER NEEDS AT THIS TIME.
--- NOTE | 2020-06-28 01:30 | NUR ---
RT IN ROOM WITH PATIENT AT THIS TIME.
--- NOTE | 2020-06-28 02:30 | NUR ---
ASSESSMENT COMPLETED. PT HAVING DIFFICULTY STAYING ASLEEP. ASSISTED WITH REPOSITIONING IN STRETCHER. DENIES PAIN OR SHORTNESS OF BREATH. PT PUT ON CPAP AT THIS TIME. CALL LIGHT WITHIN REACH. NO FURTHER NEEDS.
--- NOTE | 2020-06-28 06:01 | NUR ---
IN ROOM FOR LAB DRAW AND MEDICATION ADMINISTRATION. WELL TOLERATED BY PT.
--- NOTE | 2020-06-28 07:45 | NUR ---
HANDOFF REPORT RECEIVED FROM AUDIO VISUAL SPECIALIST RN. PT RESTING IN BED.
--- NOTE | 2020-06-28 09:05 | NUR ---
PT AMBULATING AROUND ROOM, INDEPENDENT. PT ALERT AND ORINETED. PT ON 4L NC, UNABLE TO ASSESS BREATH SOUNDS DUE TO PAPPR, PT DENIES SOB, WITHOUT S/S OF RESP DISTRESS, O2 SATS 96%. PT DENIES PAIN, DENIES NAUSEA. TOLERATING 60G CARB DIET, GIVEN 1 UNIT SS HUMALOG FOR BG 154. CMS INTACT, WITHOUT EDEMA. IV SALINE LOCKED, FLUSHED, PATENT. PT VOIDING WITHOUT DIFFICULTY. PROVIDED FRESH WATER. PT HOPING TO DISCHARGE TODAY, FEELS BACK AT BASELINE. DISCUSSED BARRIERS TO DISCHARGE AND CONTINUED NEED TO WEAR OXYGEN AFTER DISCHARGE. PT DENIES OTHER NEEDS AT THIS TIME.
--- NOTE | 2020-06-28 09:10 | NUR ---
Spoke with Srinivasa, he has returned with relapse of his covid. Has 02 at home, but would like a portable contentrator to use when he works. 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 Called and spoke with [facility] where he is currently getting his 02. They do not have the portable concentrators. Called and spoke with Karen. They do have portable 02 concentrators Oxygo and [place]wood machines. Pt must first use home concentrators with portable tankes for at least 1 months. If pt's still require 02 after a month, they will switch them to the portable concentrator. They could not do this with Srinivasa as he already has 02 from [facility]. Out of pocket cost for portable concentrator are $3000-$5000 per machine.
--- NOTE | 2020-06-28 12:23 | NUR ---
PT RESTIGN IN BED, LUNCH TRAY PROVIDED. PT BG 139, SS HUMALOG HELD. PT ON 4L NC, VSS. PT VOIDING WITHOUT DIFFICULTY. PT DENIES OTHER NEEDS AT THIS TIME.
--- NOTE | 2020-06-28 15:12 | NUR ---
PT GIVEN SOLUMEDROL PER ORDER. PT PROVIDED WITH WASH CLOTHES AND SOAP FOR SELF CARE. PT DENIES OTHER NEEDS AT THIS TIME.
--- NOTE | 2020-06-28 15:30 | NUR ---
PT BG 146, GIVEN 1 UNIT SS HUMALOG, PT ORDERED MD LENO OK WITH PT HAVING PIZZA WITH 60G CARB DIET. PT DENIES OTHER NEEDS AT THIS TIME.
--- NOTE | 2020-06-28 17:29 | NUR ---
PT SITTING IN CHAIR. PT DENIES NEEDS AT THIS TIME.
--- NOTE | 2020-06-28 18:28 | NUR ---
PT HAD UNEVENTFUL DAY. PT ON 4L NC THROUGHOUT SHIFT. PT INDEPENDENT IN ROOM, DID A BATH AT THE SINK. PT SL, IV SOLUMEDROL. CMS INTACT, WITHOUT EDEMA. PT TOLERATING 60G CARB DIET, ACCU CHECKS AND SS HUMALOG. PT WITHOUT PAIN. PT VOIDING QS.
--- NOTE | 2020-06-28 19:30 | NUR ---
PT REPORT RECIEVED. CARE OF PATIENT ASSUMED AT THIS TIME.
--- NOTE | 2020-06-28 21:21 | NUR ---
IN ROOM FOR MEDICATION ADMINISTRATION AND TO COMPLETE ASSESSMENT. DISCUSSED PLAN TO MOVE PT TO MEDICAL SURGICAL FLOOR AND PTS COVID 19 TEST COMING BACK NEGATIVE. PT ALERT AND ORIENTED. NO COMPLAINTS OF PAIN, SHORTNESS OF BREATH, OR DISCOMFORT AT THIS TIME. RR=18, SPO2 = 94 ON 4 L NC
--- NOTE | 2020-06-28 22:24 | NUR ---
PT TRANSFERED TO ROOM 116 FROM CCU. PT ALERT AND ORIENTATED, ON 4L02, ABLE TO TALK FULL SENTENCES, NO COUGHING NOTED. CONCERNED ABOUT HIS JOB AND IF HE NEEDS TO GO ON A MEDICAL LEAVE.
--- NOTE | 2020-06-28 23:30 | NUR ---
PT RESTING IN BED, ATTEMPTING TO PLACE CPAP. PT ASSISTED IN TURNING CPAP ON AND BUCKLING THE CLIP. PT DENIES FURTHER NEEDS AT THIS TIME. POC FOR THIS SHIFT DISCUSSED. CALL LIGHT IN REACH.
--- NOTE | 2020-06-29 01:01 | NUR ---
PT RESTING IN BED WITH EYES CLOSED, RESPIRATIONS EVEN AND UNLABORED. CPAP IN PLACE. CALL LIGHT IN REACH. DOES NOT WAKE WHILE BLOOD BANK COORDINATOR AT DOORWAY.
--- NOTE | 2020-06-29 03:02 | NUR ---
PT RESTING IN BED WITH EYES CLOSED. CPAP IN PLACE APPROPRIATELY. RESPIRATIONS EVEN AND UNLABORED. CALL LIGHT IN REACH.
--- NOTE | 2020-06-29 05:34 | NUR ---
PT UP TO USE BATHROOM AND BACK TO BED INDEPENDENTLY. PT AMBULATING IN ROOM WITHOUT O2 ON. WRTIER TO ROOM FOR ASSESSMENT. PT CHECKING SAO2 INDEPENDENTLY AFTER RETURN TO BED AND REPLACING CPAP, O2 IN LOW 80'S, INCREASED TO LOW 90'S AFTER A FEW MOMENTS OF HAVING CPAP IN PLACE. PT WITH DRY COUGH NOTED DURING ASSESSMENT. LUNG SOUNDS CLEAR. PT SWITCHED TO NC DURING ASSESSMENT. TALKATIVE. QUESTIONS ABOUT DISEASE PROCESS DISCUSSED. MED EDUCATION PROVIDED. PT DENIES FURTHER NEEDS AT THIS TIME. CALL LIGHT IN REACH.
--- NOTE | 2020-06-29 06:39 | NUR ---
CCU TX OVERNIGHT. PT SELPT WELL THIS SHIFT. O2 VIA NC VS CPAP @ 4LPM. SOB AND DESATURATION WITH MOVEMENT. LUNG SOUNDS CLEAR. DRY COUGH NOTED. IV SL. PT INDEPENDENT IN ROOM. ACCUCHECKS AND SSI. ADA DIET. UO QS.
--- NOTE | 2020-06-29 07:43 | NUR ---
RECEIVED REPORT FROM TERI GUNDERSON. PT WALKING AROUND ROOM THIS AM WITHOUT OXYGEN. PT REMINDED AT THIS TIME TO WEAR HIS O2. PT STATES HE WILL CALL IN HIS BREAKFAST
--- NOTE | 2020-06-29 08:42 | NUR ---
PATIENT SITTING UP IN CHAIR. WHITE BOARD UPDATED. PATIENT MAYBE WOULD LIKE TO TAKE A SHOWER TODAY. CALL LIGHT WITHIN REACH. NO OTHER NEEDS AT THIS TIME
--- NOTE | 2020-06-29 09:04 | NUR ---
PATIENT SITTING UP IN CHAIR. VITAL SIGNS AND I&O DONE. CALL LIGHT WITHIN REACH. NO OTHER NEEDS AT THIS TIME
--- NOTE | 2020-06-29 09:31 | NUR ---
MORNING MEDICATIONS DUE. PT UP TO CHAIR AND WATCHING TV ON PHONE. MEDICAITON GIVEN. LOTION PROVIDED PER PT REQUESTS. EDUCATION DONE WITH PT REGARDING IMPORANCE OF OXYGEN USE. OXYGEN SATURATION AT 96% ON 4 LITERS. EDUCATION DONE WITH PT REGARDING DIET CHOICES AND OXYGEN USE. PT STATES HE HAS BEEN ORDERING A 14 INCH PIZZIA AND BREAD STICKS EVERY DAY IN ADDITION TO HIS MEALS "BECAUSE I'M SO HUNGRY." PROTEIN SNACK CHOICES REVIEWED WITH PT. PT VERBALIZES UNDERSTANDING. HOME OXYGEN USE AND THE IMPORTANCE OF LEAVING O2 IN PLACE THROUGH THE WHOLE DAY. PT VERBALIZES UNDERSTANDING AND STATE HE WILL BE LEAVING O2 IN PLACE WHEN HE GOES HOME THIS TIME. PT REPORTS HE HAS HAD DIFFICULTY WITH THE "SMALL OXYGEN TAKENS BECUASE THEY DON'T LAST LONG ENOUGH." PT ADVISED TO TALK WITH CASE MANAGMENT ABOUT HIS CONCERNS. NO ADDITIONAL REQUESTS OR COMPLAINTS. CALL LIGHT WITHIN REACH.
--- NOTE | 2020-06-29 13:34 | NUR ---
PATIENT SITTING UP IN CHAIR. VITAL SIGNS AND I&O DONE. CALL LIGHT WITHIN REACH. NO OTHER NEEDS AT THIS TIME
[2020-06-29] MEDS ORDERED: PREDNISONE50 MG PO (13:52)
--- NOTE | 2020-06-29 15:07 | NUR ---
UPON DISCHARGE PT DOES NOT HAVE HIS HOME O2 TANK. DISCUSSED WITH COMPACT ASSEMBLER THEODORE GUNDERSON THAT PTS WAS NOT PICKING UP AND WERE TRYING TO FIGURE OUT HOW TO DISCHARGE PT SAFELY
--- NOTE | 2020-06-29 15:45 | NUR ---
Pt. plans on dc today. Notified by pt his is on the way and did not bring portable 02. Called and spoke with [facility], can stop by and roller picker 4 portable tanks as pt has used his tanks. 02 qualifier has been completed by RT, [facility] request I send 02 qualifier and notes as it is time for a requalification for 02. Per qualifier , pt needs o2. Discussed with pt, need to stay home for [address] Rothman discussed with him and he states he will try this time. Pt will dc to home shortly, denies other needs.
--- NOTE | 2020-06-30 12:46 | NUR ---
DC summary, 02 qualifier. prescription for 02 sent to [facility].
== END 2020-06-29 15:38 | disposition home or self-care (01) | DRG 177 ==
LOC: ED 11:14 → MS 17:41 → CCU 17:41 → MS 06-28 22:25
PROVIDERS: ADMIT Internal Medicine
DX: U07.1 COVID-19 (principal); J96.01 Acute respiratory failure with hypoxia; J12.89 Other viral pneumonia; Z68.42 Body mass index [BMI] 45.0-49.9, adult; G47.33 Obstructive sleep apnea (adult) (pediatric); F39 Unspecified mood [affective] disorder; E66.9 Obesity, unspecified; I10 Essential (primary) hypertension; E11.9 Type 2 diabetes mellitus without complications; Z87.891 Personal history of nicotine dependence; Z79.84 Long term (current) use of oral hypoglycemic drugs; Z79.82 Long term (current) use of aspirin; Z79.899 Other long term (current) drug therapy
CPT/HCPCS: 36600; 71045; 71260; 80048; 80053; 82803; 83735; 83880; 84484; 85025; 85379; 93005; 93010; 94640; 94660; 94667; 94760; 99285-25; C9803; J0456; J1100; J1650; J1815; J1940; J2920; J7060; Q9967